=== PATIENT | male | born 1945 | race Caucasian/White ===

== ENCOUNTER 2017-09-26 19:13 | Inpatient (IN) | payer MEDICARE ==
[2017-09-26] MEDS ORDERED: ACETAMINOPHEN 325 MG TABLET PO ONE (19:36)
--- NOTE | 2017-09-26 19:37 | ERNOTE ---
Trauma/Assault HPI - General Stated Complaint: FALL Time Seen by Provider: 09/26/17 19:16 Source: patient Exam Limitations: no limitations - Immun/Allergies/Home Medications Immunizations: IMMUNIZATION HX Immunizations Up to Date Yes History of Influenza Vaccine No Allergies/Adverse Reactions: Allergies gun powder Allergy (Unknown, Uncoded 07/18/12 13:05) Home Medications: HOME MEDICATIONS Aspirin 81 mg PO DAILY 05/03/16 [Last Taken Unknown] Benazepril HCl [Lotensin] 40 mg PO DAILY 05/03/16 [Last Taken Unknown] Clonidine HCl [Catapres] 0.3 mg PO BID 05/03/16 [Last Taken Unknown] - History of Present Illness Narrative: Around 15:00 patient slipped and fell outside, lay there for about an hour as he couldn't get up by himself, was helped into the house but then fell again prior to coming here, denies loss of consciousness, has a fever on arrival, slight cough Location Occurred: Reports: home Pain Location: Reports: back - lower Method of Injury: Reports: fall Modifying Factors - (Improves): Reports: rest Modifying Factors - (Worsens): Reports: movement Loss of Consciousness: Reports: no loss of consciousness Associated Symptoms - Trauma: Denies: headache, vision changes, neck pain, abdominal pain, nausea Review of Systems - Review of Systems Constitutional: Present: fever, chills. Absent: recent illness EYE: Absent: vision changes ENT: Absent: nose congestion, sore throat Respiratory: Present: cough. Absent: shortness of breath Cardiology: Absent: chest pain Gastrointestinal/Abdominal: Absent: nausea, vomiting, abdominal pain Genitourinary: Present: no symptoms reported Musculoskeletal: Present: See HPI, back pain Skin: Absent: rash Neurological: Absent: headache, weakness, numbness - Patient's Past Medical History Patient History - Medical: No pertinent hx Patient History - Cardiac/Respiratory: Hypertension Patient History - Cancer: No Hx of Cancer Patient History - Surgical Procedures: Other Patient History - Other: None - Social History Living Situations: home Psych History: No pertinent hx Alcohol Use: none Drug Use: none - Immunizations Immunizations Up to Date: Yes History of Influenza Vaccine: No Detailed Trauma Exam Best Eye Response (Robbie): (4) open spontaneously Best Verbal Response (Robbie): (5) oriented Best Motor Response (Robbie): (6) obeys commands Robbie Total: 15 General Appearance: Present: alert, anxious Head Injury: Present: normal inspection, no tenderness on palpate Neurological Exam: Present: alert, oriented x 4, no motor/sensory deficits, normal mood/affect, other - 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 inspection Chest/Respiratory Exam: Present: nml inspection, chest non-tender, breath sounds nml Cardiovascular Exam: Present: no murmur, tachycardia Back Exam: Present: normal inspection, no CVA tenderness, vertebral tenderness - lumbar Abdominal Exam: Present: soft, non-tender, no distention Skin Exam: Present: normal color, warm/dry RU Extremity: Present: normal inspection, normal range of motion, other - slightly tender over anterior shoulder ELLE Extremity: Present: normal inspection, normal range of motion, non-tender RL Extremity: Present: normal range of motion, non-tender, normal except - - mild abrasion over patella. no swelling LL Extremity: Present: normal inspection, normal range of motion, non-tender - C-Spine cleared by: Neg history & exam - Long Board: Back visualized ED Progress - Results and Orders Patient's Lab Results:: I have reviewed the patient's lab results. - Vital Signs Patient's Vital Signs:: I have reviewed the patient's vital signs. Vital Signs: Vital Signs 09/26/17 19:15 Temperature 40.1 C H Pulse Rate 122 H Respiratory 35 H Rate Blood Pressure 144/78 O2 Sat by Pulse 96 Oximetry - EKG EKG: NSR - sinustachy, other - poor quality EKG read: Interp. by me - X-Ray X-Ray #1 X-Ray: chest - perihilar prominence, no definite infiltrate Interpretation: Reviewed by me - CT/Ultrasound CT/Ultrasound Narrative: CT head: no acute - Progress/Reassessment Progress Note-Subjective: 09/26/17 20:47 discussed with maria e Garcia to admit 09/26/17 20:53 pneumonia severity index score 144, class V Departure Clinical Impression: Sepsis Qualifiers: Sepsis type: sepsis due to unspecified organism Qualified Code(s): A41.9 - Sepsis, unspecified organism Pneumonia Qualifiers: Pneumonia type: due to unspecified organism Laterality: unspecified laterality Lung location: unspecified part of lung Qualified Code(s): J18.9 - Pneumonia, unspecified organism Fall Qualifiers: Encounter type: initial encounter Qualified Code(s): W19.XXXA - Unspecified fall, initial encounter Lumbar contusion Qualifiers: Encounter type: initial encounter Qualified Code(s): S30.0XXA - Contusion of lower back and pelvis, initial encounter - Departure Disposition: [facility] Condition: Stable Critical Care Time - Critical Care Critical Time Spent:: No
[2017-09-26 19:39] LABS: Hematocrit 37.6 % (42.0-52.0); Hemoglobin 13.1 gm/dL (13.5-18.0); Mean Cell Volume 84.5 fl (78-100); Mean Corpuscular Hemoglobin 29.4 pg (27-31); Mean Corpuscular Hgb Conc 34.8 g/dl (32-36); Mean Platelet Volume 9.6 fl (6.0-9.5); Neutrophil # 15.9 K/mm3 (1.3-6.0); Neutrophil % 85.5 % (42-75.0); Platelet Count 234 K/mm3 (150-450); Red Blood Count 4.45 M/mm3 (4.7-6.0); White Blood Count 18.6 K/mm3 (4.0-10.5)
[2017-09-26 19:54] LABS: Albumin * 3.4 gm/dl (3.4-5.0); Anion Gap 14.6 mmol/L (6.8-13.8); BUN/Creatinine Ratio 14.8 (9.0-21.6); Bilirubin, Total 0.5 mg/dL (0.0-1.1); Ca. Corrected For Albumin 9.4 mg/dL (8.4-10.2); Calcium * 9.2 mg/dL (7.9-10.9); Carbon Dioxide 24.6 mmol/L (24-32.6); Potassium 4.2 mmol/L (3.4-4.6); Total Protein 7.8 gm/dL (6.2-8.2)
[2017-09-26] MEDS ORDERED: ACETAMINOPHEN 325 MG TABLET ONE (20:08)
[2017-09-26] MEDS: NORMAL SALINE 1,000 ML IV PRN (20:19)
[2017-09-26 20:30] LABS: Urine Bilirubin Negative (NEGATIVE); Urine Blood 250 /ul (NEGATIVE); Urine Ketone Negative (NEGATIVE); Urine Nitrite Negative (NEGATIVE); Urine Protein 30 mg/dL (NEGATIVE); Urine Specific Gravity 1.025 SP.GR. (1.005-1.030); Urine Urobilinogen Normal (NORMAL); Urine pH 5.5 pH (5.0-7.0)
[2017-09-26 20:45] LABS: Urine Appearance Clear; Urine Color Yellow
[2017-09-26 20:46] LABS: Urine Amorphous Sediment Moderate - 2+ (NONE-FEW); Urine Bacteria 1+; Urine RBC 0-5 /hpf (0-5); Urine WBC TRACE /hpf (0-5)
[2017-09-26] MEDS ORDERED: AZITHROMYCIN 250 MG TABLET PO STA (20:57)
[2017-09-26] MEDS ORDERED: AZITHROMYCIN 250 MG TABLET ONE (21:10)
[2017-09-26] MEDS ORDERED: ALBUTEROL SULFATE 2.5 MG/0.5 ML VIAL.NEB IH PRN (22:47)
[2017-09-27] MEDS: NORMAL SALINE 1,000 ML IV PRN ×3 (00:09→07:18)
[2017-09-27] MEDS ORDERED: ACETAMINOPHEN 325 MG TABLET PO STA (00:44)
[2017-09-27] MEDS: ACETAMINOPHEN 325 MG TABLET PO PRN ×3 (07:58→20:54)
[2017-09-27 08:59] LABS: Hematocrit 34.9 % (42.0-52.0); Mean Cell Volume 84.9 fl (78-100); Mean Corpuscular Hemoglobin 29.2 pg (27-31); Mean Corpuscular Hgb Conc 34.4 g/dl (32-36); Mean Platelet Volume 9.4 fl (6.0-9.5); Neutrophil # 16.6 K/mm3 (1.3-6.0); Neutrophil % 88.1 % (42-75.0); Platelet Count 181 K/mm3 (150-450); Red Blood Count 4.11 M/mm3 (4.7-6.0); Red Cell Distribution Width 14.6 % (11.5-14.0); White Blood Count 18.8 K/mm3 (4.0-10.5)
[2017-09-27 09:23] LABS: Albumin * 2.8 gm/dl (3.4-5.0); Anion Gap 14.8 mmol/L (6.8-13.8); BUN/Creatinine Ratio 13.7 (9.0-21.6); Bilirubin, Total 0.5 mg/dL (0.0-1.1); Ca. Corrected For Albumin 8.9 mg/dL (8.4-10.2); Calcium * 8.3 mg/dL (7.9-10.9); Carbon Dioxide 20.9 mmol/L (24-32.6); Potassium 3.7 mmol/L (3.4-4.6); Total Protein 6.8 gm/dL (6.2-8.2)
[2017-09-27 16:43] LABS: Urine Bilirubin Negative (NEGATIVE); Urine Blood 250 /ul (NEGATIVE); Urine Ketone Negative (NEGATIVE); Urine Nitrite Negative (NEGATIVE); Urine Protein 30 mg/dL (NEGATIVE); Urine Specific Gravity 1.025 SP.GR. (1.005-1.030); Urine Urobilinogen Normal (NORMAL)
[2017-09-27 16:52] LABS: Urine Appearance Clear; Urine Color Yellow
[2017-09-27 16:53] LABS: Urine Bacteria 1+; Urine WBC None Seen /hpf (0-5)
[2017-09-27] MEDS ORDERED: cefTRIAXone SODIUM 1,000 MG in DEXTROSE 5 % IN WATER 50 ML IV SCH ×2 (20:59)
[2017-09-27] MEDS: AZITHROMYCIN 250 MG TABLET PO SCH (22:37)
[2017-09-28] MEDS: AZITHROMYCIN 250 MG TABLET PO SCH (09:14)
[2017-09-28] MEDS: ACETAMINOPHEN 325 MG TABLET PO PRN ×2 (09:15→19:36)
[2017-09-28 09:25] LABS: Anion Gap 15.4 mmol/L (6.8-13.8); BUN/Creatinine Ratio 12.3 (9.0-21.6); Bilirubin, Total 0.6 mg/dL (0.0-1.1); Ca. Corrected For Albumin 9.6 mg/dL (8.4-10.2); Calcium * 9.1 mg/dL (7.9-10.9); Carbon Dioxide 20.5 mmol/L (24-32.6); Potassium 3.9 mmol/L (3.4-4.6); Total Protein 7.7 gm/dL (6.2-8.2)
[2017-09-28 09:31] LABS: Hematocrit 37.7 % (42.0-52.0); Hemoglobin 12.7 gm/dL (13.5-18.0); Mean Cell Volume 84.7 fl (78-100); Mean Corpuscular Hemoglobin 28.5 pg (27-31); Mean Corpuscular Hgb Conc 33.7 g/dl (32-36); Mean Platelet Volume 9.7 fl (6.0-9.5); Platelet Count 204 K/mm3 (150-450); Red Blood Count 4.45 M/mm3 (4.7-6.0); Red Cell Distribution Width 14.4 % (11.5-14.0); White Blood Count 22.7 K/mm3 (4.0-10.5)
[2017-09-28 09:32] LABS: Total Cells Counted 100
[2017-09-28 09:54] LABS: Band 3 % (0-2.0); Lymphocyte 3 % (20-51); Monocyte 2 % (0-9); Neutrophil 92 % (42-75); Neutrophil # 20.9 K/mm3 (1.3-6.0)
[2017-09-28 09:55] LABS: Platelet Estimate Normal (NORMAL); Toxic Granulation 1+
[2017-09-28] MEDS ORDERED: LEVOFLOXACIN 750 MG TABLET PO SCH (11:00)
[2017-09-28] MEDS ORDERED: FUROSEMIDE 10 MG/ML VIAL IV ONE (11:36)
[2017-09-28] MEDS: ENALAPRIL MALEATE 20 MG TABLET PO SCH (11:54)
[2017-09-28] MEDS: ASPIRIN 81 MG TAB.CHEW PO SCH (11:54)
[2017-09-28] MEDS: PIPERACILLIN SODIUM/TAZOBACTAM 3.375 GM in DEXTROSE 5 % IN WATER 100 ML IV SCH ×4 (16:51→23:45)
[2017-09-28] MEDS: VANCOMYCIN HCL 2 GM in DEXTROSE 5 % IN WATER 500 ML IV SCH ×2 (17:03)
[2017-09-28] MEDS ORDERED: MAG HYDROX/ALUMINUM HYD/SIMETH 148 ML BTL PO ONE ×2 (21:30→23:15)
[2017-09-28] MEDS: GABAPENTIN 300 MG CAPSULE PO SCH (21:36)
[2017-09-28] MEDS: SACCHAROMYCES BOULARDII 250 MG CAPSULE PO SCH (21:36)
--- NOTE | 2017-09-28 22:34 | HP ---
Chief Complaint - Chief Complaint Date of Service: 09/27/17 Time of Service: 08:00 Chief Complaint: Weakness and fever, fall History of Present Illness: Jonah is a 72 yo male that presented to the [facility] ER after being found in the snow. He had fallen and had difficulty getting up. No known loss of consciousness. He reports he has frequent falls from weakness. He scratched his knees and back and may have hit his head. He was evaluated in the ER and found to have a fever and weakness. Head CT was negative. Chest xray negative for pneumonia. Urine negative for infection. Jonah has been treated by Dr. Arriaga for a right great toe wound. He denies pain, drainage, or other change to toe or leg. - Patient's Past Medical History Patient History - Medical: Renal Failure Patient History - Cardiac/Respiratory: Hypertension, Hyperlipidemia Patient History - Cancer: No Hx of Cancer Patient History - Other: None - Family History dad Family History - Medical: Diabetes Type 2 Family History - Cardiac/Respiratory: No pertinent hx Family History - Cancer: No pertinent family hx mom Family History - Medical: No pertinent hx Family History - Cardiac/Respiratory: Other Family History - Cancer: No pertinent family hx - Social History Living Situations: home Abuse History: No History of abuse Psych History: No pertinent hx Smoking Status: Never smoker Have you smoked in the past 12 months: No Do you dip or chew tobacco: No Alcohol Use: none Drug Use: none - Immunizations Immunizations Up to Date: Yes Hx Pneumococcal Vaccination: No History of Influenza Vaccine: No Review Of Systems (GEN) - Review of Systems Generalized/Overall Review: Present: Weakness, Chills, Fever, Malaise, Diaphoresis, Fatigue EENTM: Present: No Symptoms Reported Respiratory: Present: Cough. Absent: Shortness of Breath Cardiac: Present: Edema. Absent: Chest Pain, Palpitations, Syncope Abdominal: Absent: Nausea, Vomiting, Abdominal Pain Genitourinary: Present: No Symptoms Reported Musculoskeletal: Present: Back Pain Neurological: Present: No Symptoms Reported Skin: Present: No Symptoms Reported Immunizations: IMMUNIZATION HX Immunizations Up to Date Yes History of Influenza Vaccine No Allergies/Adverse Reactions: Allergies Allergy/AdvReac Type Severity Reaction Status Date / Time gun powder Allergy Unknown Uncoded 09/26/17 23:28 Home Medications: HOME MEDICATIONS Aspirin 81 mg PO DAILY 09/14/16 [Last Taken Unknown] Benazepril HCl [Lotensin] 40 mg PO DAILY 05/03/16 [Last Taken Unknown] Clonidine HCl [Catapres] 0.3 mg PO BID 05/03/16 [Last Taken Unknown] Gabapentin 300 mg PO HS 09/26/17 [Last Taken Unknown] Exam - Exam Vital Signs: Vital Signs - Last Taken Constitutional: Present: Alert, Oriented x3, Cooperative ENT Exam: Present: hearing grossly normal Eye Exam: bilateral eye: normal inspection Respiratory: Present: lungs clear, normal breath sounds, no respiratory distress Cardiovascular/Chest: Present: regular rate, rhythm, no murmur Abdomen: Present: Normal bowel sounds, soft, nontender, nondistended Extremity: Present: inflammation - Right ankle to knee, 1+ pitting edema, mild erythema, not hot or tender to palpation, lower extremity edema Neurologic: Present: alert, normal mood/affect, oriented x 3, sensory deficit - bilateral feet Appearance: Present: appropriate appearance, appropriate insight Eye contact: Present: cooperative, good eye contact, normal speech Diagnostic Studies: Abnormal Lab Results 09/28/17 09/28/17 Range/Units 09:07 09:07 WBC 22.7 H D (4.0-10.5) K/mm3 RBC 4.45 L (4.7-6.0) M/mm3 Hgb 12.7 L (13.5-18.0) gm/dL Hct 37.7 L (42.0-52.0) % RDW 14.4 H (11.5-14.0) % MPV 9.7 H (6.0-9.5) fl Neutrophils % (Manual) 92 H (42-75) % Band Neuts % (Manual) 3 H (0-2.0) % Lymphocytes % (Manual) 3 L (20-51) % Neutrophils # (Manual) 20.9 H (1.3-6.0) K/mm3 Lymphocytes # (Manual) 0.7 L (1.5-3.5) k/mm3 Carbon Dioxide 20.5 L (24-32.6) mmol/L Anion Gap 15.4 H (6.8-13.8) mmol/L BUN 26 H (6-23) mg/dL Creatinine 2.11 H (0.4-1.4) mg/dL Est GFR (Non-Af Amer) 33 L (60-130) mL/min Random Glucose 163 H (70-110) mg/dL AST 189 H (0-48) U/L Albumin 3.0 L (3.4-5.0) gm/dl Microbiology 09/26/17 21:02 Blood Culture - Preliminary Blood NO GROWTH AFTER 48 HOURS 09/27/17 09:40 - Final Nares MRSA Negative 09/26/17 23:26 - Final Nares MRSA Negative Laboratory Results WBC 22.7 K/mm3 (4.0-10.5) H D 09/28/17 09:07 RBC 4.45 M/mm3 (4.7-6.0) L 09/28/17 09:07 Hgb 12.7 gm/dL (13.5-18.0) L 09/28/17 09:07 Hct 37.7 % (42.0-52.0) L 09/28/17 09:07 MCV 84.7 fl (78-100) 09/28/17 09:07 MCH 28.5 pg (27-31) 09/28/17 09:07 MCHC 33.7 g/dl (32-36) 09/28/17 09:07 RDW 14.4 % (11.5-14.0) H 09/28/17 09:07 Plt Count 204 K/mm3 (150-450) 09/28/17 09:07 MPV 9.7 fl (6.0-9.5) H 09/28/17 09:07 Immature Gran % (Auto) 0.90 % (0.001-0.429) H 09/27/17 08:55 Immature Gran # (Auto) 0.17 K/mm3 (0.000-0.0310) H 09/27/17 08:55 Neutrophils % 88.1 % (42-75.0) H 09/27/17 08:55 Neutrophils % (Manual) 92 % (42-75) H 09/28/17 09:07 Band Neuts % (Manual) 3 % (0-2.0) H 09/28/17 09:07 Lymphocytes % 6.6 % (20-51) L 09/27/17 08:55 Lymphocytes % (Manual) 3 % (20-51) L 09/28/17 09:07 Monocytes % 3.6 % (0.0-9) 09/27/17 08:55 Monocytes % (Manual) 2 % (0-9) 09/28/17 09:07 Eosinophils % 0.0 % (0.0-3.0) 09/27/17 08:55 Basophils % 0.8 % (0.0-1.0) 09/27/17 08:55 Nucleated RBC % 0.0 k/mm3 (0-1) 09/27/17 08:55 Neutrophils # 16.6 K/mm3 (1.3-6.0) H 09/27/17 08:55 Neutrophils # (Manual) 20.9 K/mm3 (1.3-6.0) H 09/28/17 09:07 Lymphocytes # 1.2 k/mm3 (1.5-3.5) L 09/27/17 08:55 Lymphocytes # (Manual) 0.7 k/mm3 (1.5-3.5) L 09/28/17 09:07 Monocytes # 0.7 k/mm3 (0.0-1.0) 09/27/17 08:55 Monocytes # (Manual) 0.5 k/mm3 (0.0-1.0) 09/28/17 09:07 Eosinophils # 0.0 k/mm3 (0.0-0.7) 09/27/17 08:55 Basophils # (Manual) 0.0 k/mm3 (0.0-0.1) 09/28/17 09:07 Absolute Basophils 0.2 k/mm3 (0.0-0.1) H 09/27/17 08:55 Toxic Granulation 1+ 09/28/17 09:07 Toxic Vacuolation 1+ 09/28/17 09:07 Platelet Estimate Normal (NORMAL) 09/28/17 09:07 Sodium 135 mmol/L (132-142) 09/28/17 09:07 Plasma Sodium 136 mmol/L (130-142) 09/28/17 09:07 Potassium 3.9 mmol/L (3.4-4.6) 09/28/17 09:07 Chloride 103 mmol/L (97-106) 09/28/17 09:07 Carbon Dioxide 20.5 mmol/L (24-32.6) L 09/28/17 09:07 Anion Gap 15.4 mmol/L (6.8-13.8) H 09/28/17 09:07 BUN 26 mg/dL (6-23) H 09/28/17 09:07 Creatinine 2.11 mg/dL (0.4-1.4) H 09/28/17 09:07 Est GFR (Non-Af Amer) 33 mL/min (60-130) L 09/28/17 09:07 BUN/Creatinine Ratio 12.3 (9.0-21.6) 09/28/17 09:07 Random Glucose 163 mg/dL (70-110) H 09/28/17 09:07 Lactic Acid, Venous 1.5 mmol/L (0.4-1.9) 09/26/17 23:04 Calcium 9.1 mg/dL (7.9-10.9) 09/28/17 09:07 Calcium Adj for Albumin 9.6 mg/dL (8.4-10.2) 09/28/17 09:07 Total Bilirubin 0.6 mg/dL (0.0-1.1) 09/28/17 09:07 AST 189 U/L (0-48) H 09/28/17 09:07 ALT 62 U/L (19-67) 09/28/17 09:07 Alkaline Phosphatase 91 U/L (50-170) 09/28/17 09:07 Total Protein 7.7 gm/dL (6.2-8.2) 09/28/17 09:07 Albumin 3.0 gm/dl (3.4-5.0) L 09/28/17 09:07 Procalcitonin 15.81 ng/mL (0.05-0.50) H 09/26/17 19:38 Urine Color Yellow 09/27/17 16:37 Urine Appearance Clear 09/27/17 16:37 Urine pH 6.0 pH (5.0-7.0) 09/27/17 16:37 Ur Specific [place] 1.025 SP.GR. (1.005-1.030) 09/27/17 16:37 Urine Protein 30 mg/dL (NEGATIVE) H 09/27/17 16:37 Urine Glucose (UA) 100 mg/dL (NEGATIVE) H 09/27/17 16:37 Urine Ketones Negative mg/dL (NEGATIVE) 09/27/17 16:37 Urine Blood 250 /ul (NEGATIVE) H 09/27/17 16:37 Urine Nitrate Negative (NEGATIVE) 09/27/17 16:37 Urine Bilirubin Negative mg/dl (NEGATIVE) 09/27/17 16:37 Prot Sulfosalicylic Acd Negative mg/dL (0) 09/27/17 16:37 Urine Urobilinogen Normal EU/dl (NORMAL) 09/27/17 16:37 Ur Leukocyte Esterase Negative /ul (NEGATIVE) 09/27/17 16:37 Urine RBC 5-10 /hpf (0-5) H 09/27/17 16:37 Urine WBC None seen /hpf (0-5) 09/27/17 16:37 Ur Epithelial Cells None seen /hpf (0-5) 09/27/17 16:37 Amorphous Sediment Moderate - 2+ (NONE-FEW) H 09/26/17 19:45 Urine Bacteria 1+ (NONE) H 09/27/17 16:37 Urine Culture Comments No culture indicated 09/27/17 16:37 Influenza Type A Ag Negative (NEGATIVE) 09/26/17 19:25 Influenza Type B Ag Negative (NEGATIVE) 09/26/17 19:25 Assessment/Plan - Narrative Narrative: Jonah is a 72 yo male with: 1) Suspected sepsis based on leukocytosis, fever, tachycardia, and tachypnea. Also with elevated lactic acid and procalcitonin. Will obtain blood cultures, urine culture. Unknown infectious source. Patient was found in the snow, possible pneumonia with cough and fever, but chest xray did not show a pneumonia , may be too early. Urine was negative for infection. Right great toe looks chronic. Right leg erythema seems secondary to edema and not significantly red. Most likely infectious source at this time is pneumonia. Will treat with azithromycin and rocephin. I will talk with Dr. Arriaga about the usual appearance of his foot. Will repeat chest xray to see if any obvious pneumonia develops. Expect >1 midnight to evaluate source of infection and treat. - Assessment/Plan (1) Sepsis Problem: Suspected Qualifiers: Sepsis type: sepsis due to unspecified organism Qualified Code(s): A41.9 - Sepsis, unspecified organism (2) Leukocytosis Problem: Acute (3) Fever Problem: Acute (4) Fall Problem: Acute Qualifiers: Encounter type: initial encounter Qualified Code(s): W19.XXXA - Unspecified fall, initial encounter
[2017-09-28] MEDS ORDERED: MAG HYDROX/ALUMINUM HYD/SIMETH 30 ML UDC ONE (23:07)
--- NOTE | 2017-09-28 23:53 | PN ---
Subjective - Date and Time Seen Date: 09/28/17 Time: 15:00 Subjective Narrative: Jonah reports nausea today. Denies pain to right leg or foot. Continues to have a mild cough. Discussed with Dr. Arriaga who looked at his foot and felt it was unchanged from usual. No surrounding erythema. Objective - Vitals Vitals: Last Vital Signs Temp 36.4 C L 09/28/17 23:12 Pulse 86 09/28/17 23:12 Resp 18 09/28/17 23:12 BP 162/95 09/28/17 23:12 Pulse Ox 99 09/28/17 23:12 - Abnormal Lab Findings Abnormal Lab Findings: Abnormal Lab Results 09/28/17 09/28/17 Range/Units 09:07 09:07 WBC 22.7 H D (4.0-10.5) K/mm3 RBC 4.45 L (4.7-6.0) M/mm3 Hgb 12.7 L (13.5-18.0) gm/dL Hct 37.7 L (42.0-52.0) % RDW 14.4 H (11.5-14.0) % MPV 9.7 H (6.0-9.5) fl Neutrophils % (Manual) 92 H (42-75) % Band Neuts % (Manual) 3 H (0-2.0) % Lymphocytes % (Manual) 3 L (20-51) % Neutrophils # (Manual) 20.9 H (1.3-6.0) K/mm3 Lymphocytes # (Manual) 0.7 L (1.5-3.5) k/mm3 Carbon Dioxide 20.5 L (24-32.6) mmol/L Anion Gap 15.4 H (6.8-13.8) mmol/L BUN 26 H (6-23) mg/dL Creatinine 2.11 H (0.4-1.4) mg/dL Est GFR (Non-Af Amer) 33 L (60-130) mL/min Random Glucose 163 H (70-110) mg/dL AST 189 H (0-48) U/L Albumin 3.0 L (3.4-5.0) gm/dl - Exam Constitutional: Present: Alert, Oriented x3, Cooperative ENT Exam: Present: hearing grossly normal Respiratory: Present: lungs clear, normal breath sounds Cardiovascular/Chest: Present: regular rate, rhythm, no murmur Abdomen: Present: Normal bowel sounds, soft, nontender, nondistended Extremity: Present: inflammation - Right ankle to knee with bright red erythema , brighter than yesterday. No drainage. No redness of foot. Right great toe with dry, chronic appearing callous, lower extremity edema - 2+ Neurologic: Present: alert, normal mood/affect, oriented x 3 Appearance: Present: appropriate appearance, appropriate insight Assessment/Plan Plan Narrative: Jonah is a 72 yo male with: 1) Suspected sepsis based on leukocytosis, tachycardia, tachypnea, and fever. Right lower leg cellulitis present. He has a history of venous stasis dermatitis , unclear if this is usual or worse. Today the right leg does appear more erythematous than yesterday, and this is the likely source of infection. Xray of right foot did not show any evidence of osteomyelitis but to get a better and more definite answer attempted to get right foot MRI but patient was unable to hold his foot still due to restlessness. WBC even higher today. Discontinued rocephin/azithromycin and started zosyn/vancomycin to broad cover cellulitis with possible sepsis and possible osteomyelitis. Will follow CBC. - Problems/Diagnosis (1) Cellulitis of right leg without foot Problem: Acute (2) Sepsis Problem: Suspected Qualifiers: Sepsis type: sepsis due to unspecified organism Qualified Code(s): A41.9 - Sepsis, unspecified organism (3) Leukocytosis Problem: Acute (4) Fever Problem: Acute (5) Fall Problem: Acute Qualifiers: Encounter type: initial encounter Qualified Code(s): W19.XXXA - Unspecified fall, initial encounter
[2017-09-29 05:46] LABS: Hematocrit 38.5 % (42.0-52.0); Hemoglobin 13.1 gm/dL (13.5-18.0); Mean Cell Volume 84.4 fl (78-100); Mean Corpuscular Hemoglobin 28.7 pg (27-31); Mean Platelet Volume 9.7 fl (6.0-9.5); Platelet Count 228 K/mm3 (150-450); Red Blood Count 4.56 M/mm3 (4.7-6.0); Red Cell Distribution Width 14.2 % (11.5-14.0); White Blood Count 18.2 K/mm3 (4.0-10.5)
[2017-09-29 05:50] LABS: Total Cells Counted 100
[2017-09-29 06:11] LABS: Albumin * 2.9 gm/dl (3.4-5.0); Anion Gap 14.6 mmol/L (6.8-13.8); BUN/Creatinine Ratio 11.7 (9.0-21.6); Bilirubin, Total 0.7 mg/dL (0.0-1.1); Ca. Corrected For Albumin 9.6 mg/dL (8.4-10.2); Carbon Dioxide 23.1 mmol/L (24-32.6); Eosinophil 2 % (0-3); Lymphocyte 12 % (20-51); Monocyte 8 % (0-9); Neutrophil 78 % (42-75); Neutrophil # 14.2 K/mm3 (1.3-6.0); Potassium 3.7 mmol/L (3.4-4.6); Total Protein 8.1 gm/dL (6.2-8.2)
[2017-09-29 06:17] LABS: Platelet Estimate Normal (NORMAL); RBC Morphology Normal (NORMAL)
[2017-09-29] MEDS: PIPERACILLIN SODIUM/TAZOBACTAM 3.375 GM in DEXTROSE 5 % IN WATER 100 ML IV SCH ×6 (06:57→22:31)
--- NOTE | 2017-09-29 07:40 | PN ---
Subjective - Date and Time Seen Date: 09/29/17 Time: 07:27 Subjective Narrative: Reports dry heaving before each meal which is new to him. He does report some issues with urination recently and some recent hematuria and LBP. States no more hematuria, but does have lower back pain. No other complaints this am. Objective - Review of Systems Generalized/Overall Review: Reports: Weakness, Fever, Malaise. Denies: Chills EENTM: Reports: No Symptoms Reported Respiratory: Reports: No Symptoms Reported Cardiac: Reports: No Symptoms Reported Abdominal: Reports: Nausea, Vomiting. Denies: Hematemesis, Abdominal Pain, Constipation, Diarrhea Genitourinary Symptoms: Reports: Hematuria. Denies: Urgency, Frequency, Hesitancy, Dysuria Musculoskeletal Complaints: Reports: Back Pain Neurological: Reports: No Symptoms Reported Skin: Reports: Change in Color Endocrine: Reports: No Symptoms Reported - Vitals Vitals: Last Vital Signs Temp 36.6 C 09/29/17 06:41 Pulse 88 09/29/17 06:41 Resp 20 09/29/17 06:41 BP 179/99 09/29/17 06:41 Pulse Ox 97 09/29/17 03:03 - Abnormal Lab Findings Abnormal Lab Findings: Abnormal Lab Results 09/28/17 09/28/17 09/29/17 Range/Units 09:07 09:07 05:30 WBC 22.7 H D 18.2 H (4.0-10.5) K/mm3 RBC 4.45 L 4.56 L (4.7-6.0) M/mm3 Hgb 12.7 L 13.1 L (13.5-18.0) gm/dL Hct 37.7 L 38.5 L (42.0-52.0) % RDW 14.4 H 14.2 H (11.5-14.0) % MPV 9.7 H 9.7 H (6.0-9.5) fl Neutrophils % (Manual) 92 H 78 H (42-75) % Band Neuts % (Manual) 3 H (0-2.0) % Lymphocytes % (Manual) 3 L 12 L (20-51) % Neutrophils # (Manual) 20.9 H 14.2 H (1.3-6.0) K/mm3 Lymphocytes # (Manual) 0.7 L (1.5-3.5) k/mm3 Monocytes # (Manual) 1.5 H (0.0-1.0) k/mm3 ESR (0-10) mm/hr Carbon Dioxide 20.5 L (24-32.6) mmol/L Anion Gap 15.4 H (6.8-13.8) mmol/L BUN 26 H (6-23) mg/dL Creatinine 2.11 H (0.4-1.4) mg/dL Est GFR (Non-Af Amer) 33 L (60-130) mL/min Random Glucose 163 H (70-110) mg/dL AST 189 H (0-48) U/L C-Reactive Prot, Quant (0.0-0.9) mg/dL Albumin 3.0 L (3.4-5.0) gm/dl 09/29/17 09/29/17 Range/Units 05:30 05:30 WBC (4.0-10.5) K/mm3 RBC (4.7-6.0) M/mm3 Hgb (13.5-18.0) gm/dL Hct (42.0-52.0) % RDW (11.5-14.0) % MPV (6.0-9.5) fl Neutrophils % (Manual) (42-75) % Band Neuts % (Manual) (0-2.0) % Lymphocytes % (Manual) (20-51) % Neutrophils # (Manual) (1.3-6.0) K/mm3 Lymphocytes # (Manual) (1.5-3.5) k/mm3 Monocytes # (Manual) (0.0-1.0) k/mm3 ESR 102 H (0-10) mm/hr Carbon Dioxide 23.1 L (24-32.6) mmol/L Anion Gap 14.6 H (6.8-13.8) mmol/L BUN 25 H (6-23) mg/dL Creatinine 2.14 H (0.4-1.4) mg/dL Est GFR (Non-Af Amer) 33 L (60-130) mL/min Random Glucose 124 H (70-110) mg/dL AST 122 H (0-48) U/L C-Reactive Prot, Quant 19.0 H (0.0-0.9) mg/dL Albumin 2.9 L (3.4-5.0) gm/dl - Exam Constitutional: Present: Alert, Oriented x3, Cooperative, Mild distress, Moderate distress - vomiting - more dry heaving at time I saw him. still wanting to eat breakfast., Obese ENT Exam: Present: hard of hearing Neck: Present: supple Respiratory: Present: lungs clear, normal breath sounds, no respiratory distress , no accessory muscle use Cardiovascular/Chest: Present: regular rate, rhythm, no murmur Abdomen: Present: Normal bowel sounds, soft, nontender, no rebound tenderness, no hepatospenomegaly, obese Extremity: Present: lower extremity edema, leg pain, other - significant redness of the right lower leg, warm to touch but only slightly TTP. no open sores. Skin Exam: Present: warm/dry Neurologic: Present: normal mood/affect, oriented x 3 Appearance: Present: appropriate appearance, appropriate insight Eye contact: Present: cooperative, good eye contact, normal speech Thoughts: Present: normal thought pattern, no apparent hallucination Assessment/Plan - Problems/Diagnosis (1) Vomiting Problem: Acute Qualifiers: Vomiting type: unspecified Vomiting Intractability: non-intractable Nausea presence: with nausea Qualified Code(s): R11.2 - Nausea with vomiting, unspecified Narrative: unsure etiology - could be related to infection. will do reglan AC as it is reported to occur before each meal. Add zofran prn if reglan not effective. (2) Cellulitis of right leg without foot Problem: Acute Narrative: only source that can be found at the moment and leg is warm and quite red. change of abx is improving the labs, but will see how the leg does over time. (3) Fever Problem: Acute Qualifiers: Fever type: due to other condition Qualified Code(s): R50.81 - Fever presenting with conditions classified elsewhere Narrative: from infection - source presumed to be cellulitis. (4) Leukocytosis Problem: Acute Qualifiers: Leukocytosis type: bandemia Qualified Code(s): D72.825 - Bandemia Narrative: improved slightly this am after change of abx, but still 18k WBC and left shift , but bands resolved from yesterday. (5) Sepsis Problem: Suspected Qualifiers: Sepsis type: sepsis due to unspecified organism Qualified Code(s): A41.9 - Sepsis, unspecified organism Narrative: Sepsis supported by lactic acidosis, leukocytosis, fever of 40, tachycardia, though still unsure of the source. given his recent hematuria and back pain it is possible it could be a prostatitis. Given the redness of his leg, this appears to be the only other prominant source of infection. Abx change is improving things from a CBC standpoint so will continue unchanged. (6) Discharge planning issues Problem: Acute Narrative: anticipate him being here a minimum of 2 more days.
[2017-09-29] MEDS: METOCLOPRAMIDE HCL 5 MG TABLET PO SCH ×3 (08:11→17:22)
[2017-09-29] MEDS: ENALAPRIL MALEATE 20 MG TABLET PO SCH (08:12)
[2017-09-29] MEDS: ASPIRIN 81 MG TAB.CHEW PO SCH (08:12)
[2017-09-29] MEDS: SACCHAROMYCES BOULARDII 250 MG CAPSULE PO SCH ×2 (08:12→20:50)
[2017-09-29] MEDS: VANCOMYCIN HCL 2 GM in DEXTROSE 5 % IN WATER 500 ML IV SCH ×2 (15:24)
[2017-09-29] MEDS: GABAPENTIN 300 MG CAPSULE PO SCH (20:50)
[2017-09-30] MEDS ORDERED: amLODIPine BESYLATE 5 MG TABLET PO SCH (02:45)
[2017-09-30] MEDS: PIPERACILLIN SODIUM/TAZOBACTAM 3.375 GM in DEXTROSE 5 % IN WATER 100 ML IV SCH ×6 (07:19→23:49)
[2017-09-30] MEDS: METOCLOPRAMIDE HCL 5 MG TABLET PO SCH ×3 (07:19→17:28)
[2017-09-30] MEDS: ASPIRIN 81 MG TAB.CHEW PO SCH (08:56)
[2017-09-30] MEDS: ENALAPRIL MALEATE 20 MG TABLET PO SCH (08:56)
[2017-09-30] MEDS: amLODIPine BESYLATE 5 MG TABLET PO SCH (08:56)
[2017-09-30] MEDS: SACCHAROMYCES BOULARDII 250 MG CAPSULE PO SCH ×2 (08:56→22:41)
--- NOTE | 2017-09-30 12:19 | PN ---
Subjective - Date and Time Seen Date: 09/30/17 Time: 12:12 Subjective Narrative: States back pain is better today. States no leg pain. Nausea and vomiting AC is better. No other concerns expressed. Objective - Review of Systems Generalized/Overall Review: Reports: No Symptoms Reported EENTM: Reports: No Symptoms Reported Respiratory: Reports: No Symptoms Reported Cardiac: Reports: No Symptoms Reported Abdominal: Reports: No Symptoms Reported Genitourinary Symptoms: Reports: No Symptoms Reported Musculoskeletal Complaints: Reports: Back Pain Neurological: Reports: No Symptoms Reported Skin: Reports: Rash, Change in Color Endocrine: Reports: No Symptoms Reported - Vitals Vitals: Last Vital Signs Temp 36.7 C 09/30/17 10:26 Pulse 102 H 09/30/17 10:26 Resp 19 09/30/17 10:26 BP 111/78 09/30/17 10:26 Pulse Ox 100 09/30/17 10:26 - Exam Constitutional: Present: Alert, Oriented x3, Cooperative, Mild distress - slow speech/mentation, Obese ENT Exam: Present: hearing grossly normal Neck: Present: supple Respiratory: Present: chest non-tender, lungs clear, normal breath sounds, no accessory muscle use, respiratory distress Cardiovascular/Chest: Present: normal peripheral pulses, regular rate, rhythm Abdomen: Present: Normal bowel sounds, soft, nontender, nondistended, no rebound tenderness, no hepatospenomegaly Extremity: Present: no calf tenderness, other - edema and redness of the right LE, with erythema reduced from previous markings. mild warmth, NTTP. Neurologic: Present: normal mood/affect, oriented x 3 Appearance: Present: appropriate appearance, appropriate insight Eye contact: Present: cooperative, good eye contact, decreased rate of speech Thoughts: Present: normal thought pattern, no apparent hallucination Assessment/Plan - Problems/Diagnosis (1) Vomiting Problem: Acute Qualifiers: Vomiting type: unspecified Vomiting Intractability: non-intractable Nausea presence: with nausea Qualified Code(s): R11.2 - Nausea with vomiting, unspecified Narrative: better, cont. reglan ac (2) Cellulitis of right leg without foot Problem: Acute Narrative: improving. still only source of infection that is visible. (3) Fever Problem: Resolved Qualifiers: Fever type: due to other condition Qualified Code(s): R50.81 - Fever presenting with conditions classified elsewhere (4) Leukocytosis Problem: Acute Qualifiers: Leukocytosis type: bandemia Qualified Code(s): D72.825 - Bandemia Narrative: recheck in am, but clinically improving so would expect labs to improve. (5) Sepsis Problem: Suspected Qualifiers: Sepsis type: sepsis due to unspecified organism Qualified Code(s): A41.9 - Sepsis, unspecified organism Narrative: improving - cellulitis or possibly prostatitis given his back pain is better on the abx. (6) Discharge planning issues Problem: Acute Narrative: will need to be transitioned to PO meds or consider SNF for Abx tx. continue current tx for now. hopefully can d/c in a few days.
[2017-09-30] MEDS: VANCOMYCIN HCL 2 GM in DEXTROSE 5 % IN WATER 500 ML IV SCH ×2 (15:23)
[2017-09-30] MEDS: GABAPENTIN 300 MG CAPSULE PO SCH (22:41)
[2017-10-01 06:01] LABS: Hematocrit 41.1 % (42.0-52.0); Hemoglobin 13.9 gm/dL (13.5-18.0); Mean Cell Volume 84.7 fl (78-100); Mean Corpuscular Hemoglobin 28.7 pg (27-31); Mean Corpuscular Hgb Conc 33.8 g/dl (32-36); Mean Platelet Volume 9.3 fl (6.0-9.5); Neutrophil # 10.8 K/mm3 (1.3-6.0); Neutrophil % 73.9 % (42-75.0); Platelet Count 284 K/mm3 (150-450); Red Blood Count 4.85 M/mm3 (4.7-6.0); Red Cell Distribution Width 14.5 % (11.5-14.0); White Blood Count 14.7 K/mm3 (4.0-10.5)
[2017-10-01 06:28] LABS: Albumin * 2.7 gm/dl (3.4-5.0); Anion Gap 13.4 mmol/L (6.8-13.8); BUN/Creatinine Ratio 13.6 (9.0-21.6); Bilirubin, Total 0.8 mg/dL (0.0-1.1); Ca. Corrected For Albumin 9.6 mg/dL (8.4-10.2); Calcium * 8.9 mg/dL (7.9-10.9); Carbon Dioxide 24.5 mmol/L (24-32.6); Potassium 3.9 mmol/L (3.4-4.6); Total Protein 7.7 gm/dL (6.2-8.2)
[2017-10-01] MEDS: PIPERACILLIN SODIUM/TAZOBACTAM 3.375 GM in DEXTROSE 5 % IN WATER 100 ML IV SCH ×6 (07:02→22:31)
[2017-10-01] MEDS: METOCLOPRAMIDE HCL 5 MG TABLET PO SCH ×3 (07:02→16:17)
[2017-10-01] MEDS: SACCHAROMYCES BOULARDII 250 MG CAPSULE PO SCH ×2 (08:31→20:03)
[2017-10-01] MEDS: ASPIRIN 81 MG TAB.CHEW PO SCH (08:31)
[2017-10-01] MEDS: amLODIPine BESYLATE 5 MG TABLET PO SCH (08:31)
[2017-10-01] MEDS: ENALAPRIL MALEATE 20 MG TABLET PO SCH (08:32)
--- NOTE | 2017-10-01 12:36 | PN ---
Subjective - Date and Time Seen Date: 10/01/17 Time: 12:24 Subjective Narrative: Reports strength is improving. No pain in leg. No fever, chills, nausea, or vomiting. Objective - Vitals Vitals: Last Vital Signs Temp 37 C 10/01/17 11:00 Pulse 88 10/01/17 11:00 Resp 18 10/01/17 11:00 BP 154/80 10/01/17 11:00 Pulse Ox 98 10/01/17 11:00 - Abnormal Lab Findings Abnormal Lab Findings: Abnormal Lab Results 10/01/17 10/01/17 10/01/17 Range/Units 05:58 05:58 05:58 WBC 14.7 H (4.0-10.5) K/mm3 Hct 41.1 L (42.0-52.0) % RDW 14.5 H (11.5-14.0) % Immature Gran % (Auto) 2.90 H (0.001-0.429) % Immature Gran # (Auto) 0.43 H (0.000-0.0310) K/mm3 Lymphocytes % 13.2 L (20-51) % Neutrophils # 10.8 H (1.3-6.0) K/mm3 ESR 57 H (0-10) mm/hr BUN 29 H (6-23) mg/dL Creatinine 2.13 H (0.4-1.4) mg/dL Est GFR (Non-Af Amer) 33 L (60-130) mL/min Random Glucose 118 H (70-110) mg/dL AST 87 H (0-48) U/L ALT 75 H (19-67) U/L Albumin 2.7 L (3.4-5.0) gm/dl - Exam Constitutional: Present: Alert, Oriented x3, Cooperative ENT Exam: Present: hearing grossly normal Respiratory: Present: lungs clear, normal breath sounds Cardiovascular/Chest: Present: regular rate, rhythm, no murmur Extremity: Present: lower extremity edema - 1+ Skin Exam: Present: other - Erythema to right anterior lower leg Neurologic: Present: motor weakness Appearance: Present: appropriate appearance, appropriate insight Eye contact: Present: cooperative, good eye contact, normal speech Assessment/Plan - Problems/Diagnosis (1) Cellulitis of right leg without foot Problem: Acute Narrative: Cellulitis improving with zosyn/vancomycin. WBC improved to 14k. (2) Sepsis Problem: Ruled-out Qualifiers: Sepsis type: sepsis due to unspecified organism Qualified Code(s): A41.9 - Sepsis, unspecified organism (3) Fall Problem: Acute Qualifiers: Encounter type: initial encounter Qualified Code(s): W19.XXXA - Unspecified fall, initial encounter (4) Weakness of both lower extremities Problem: Acute Narrative: Patient with weakness to bilateral lower extremities with frequent falls. Needs strengthening. Continue therapy. Needs the use of a walker to help ambulate. Unsafe and unbalanced to use a cane. Able to maneuver a walker with improvement in ambulation.
[2017-10-01] MEDS ORDERED: VANCOMYCIN HCL LEVEL XX ONE (15:00)
[2017-10-01] MEDS: VANCOMYCIN HCL 2 GM in DEXTROSE 5 % IN WATER 500 ML IV SCH ×2 (16:21)
[2017-10-01] MEDS: GABAPENTIN 300 MG CAPSULE PO SCH (20:03)
[2017-10-01] MEDS: VANCOMYCIN HCL 1.75 GM in DEXTROSE 5 % IN WATER 500 ML IV SCH ×2 (20:05)
[2017-10-02] MEDS: PIPERACILLIN SODIUM/TAZOBACTAM 3.375 GM in DEXTROSE 5 % IN WATER 100 ML IV SCH ×4 (08:08→16:31)
[2017-10-02] MEDS: ACETAMINOPHEN 325 MG TABLET PO PRN (08:10)
[2017-10-02] MEDS: amLODIPine BESYLATE 5 MG TABLET PO SCH (08:10)
[2017-10-02] MEDS: SACCHAROMYCES BOULARDII 250 MG CAPSULE PO SCH ×2 (08:11→21:34)
[2017-10-02] MEDS: ENALAPRIL MALEATE 20 MG TABLET PO SCH (08:11)
[2017-10-02] MEDS: ASPIRIN 81 MG TAB.CHEW PO SCH (08:11)
[2017-10-02] MEDS: METOCLOPRAMIDE HCL 5 MG TABLET PO SCH ×3 (08:11→16:49)
[2017-10-02 08:28] LABS: Hematocrit 41.2 % (42.0-52.0); Mean Cell Volume 85.1 fl (78-100); Mean Corpuscular Hemoglobin 28.9 pg (27-31); Mean Platelet Volume 9.2 fl (6.0-9.5); Platelet Count 358 K/mm3 (150-450); Red Blood Count 4.84 M/mm3 (4.7-6.0); Red Cell Distribution Width 14.5 % (11.5-14.0); White Blood Count 16.8 K/mm3 (4.0-10.5)
[2017-10-02 08:29] LABS: Total Cells Counted 100
[2017-10-02 08:54] LABS: Band 1 % (0-2.0); Dohle Bodies Trace; Eosinophil 1 % (0-3); Lymphocyte 21 % (20-51); Monocyte 5 % (0-9); Neutrophil 72 % (42-75); Neutrophil # 12.1 K/mm3 (1.3-6.0); Platelet Estimate Normal (NORMAL); Toxic Granulation Trace
--- NOTE | 2017-10-02 16:38 | PN ---
Subjective - Date and Time Seen Date: 10/02/17 Time: 12:35 Subjective Narrative: He reports he was having pain earlier this morning and was unable to walk on left foot, but took some tylenol and pain went away. He has walked on it since without problem. He reports getting stronger. No fever, chills, n/v. Objective - Vitals Vitals: Last Vital Signs Temp 36.4 C L 10/02/17 15:07 Pulse 88 10/02/17 16:16 Resp 18 10/02/17 15:07 BP 133/82 10/02/17 15:07 Pulse Ox 100 10/02/17 15:07 - Abnormal Lab Findings Abnormal Lab Findings: Abnormal Lab Results 10/02/17 Range/Units 08:22 WBC 16.8 H (4.0-10.5) K/mm3 Hct 41.2 L (42.0-52.0) % RDW 14.5 H (11.5-14.0) % Neutrophils # (Manual) 12.1 H (1.3-6.0) K/mm3 - Exam Constitutional: Present: Alert, Oriented x3, Cooperative ENT Exam: Present: hearing grossly normal Respiratory: Present: lungs clear, normal breath sounds Cardiovascular/Chest: Present: regular rate, rhythm, no murmur Abdomen: Present: Normal bowel sounds, soft, nontender, nondistended Skin Exam: Present: normal color, other - No erythema. Bottom of feel are dry and cracked in locations Appearance: Present: appropriate appearance, appropriate insight Assessment/Plan Plan Narrative: Jonah is a 72 yo male with: 1) Right leg cellulitis - Cellulitis appears to be improving. No longer erythematous right leg. WBC up a little today at 16k. Continue zosyn and vancomycin. Since starting these medications he has improved significantly. Unsure as to the cause in the WBC bump today. Will recheck tomorrow. Plan to continue zosyn/vanco for 1 full week. 2) Dry feet - Will add moisturizing lotion 3) Foot pain - Will check uric acid with tomorrow's labs. - Problems/Diagnosis (1) Cellulitis of right leg without foot Problem: Acute (2) Sepsis Problem: Ruled-out Qualifiers: Sepsis type: sepsis due to unspecified organism Qualified Code(s): A41.9 - Sepsis, unspecified organism (3) Fall Problem: Acute Qualifiers: Encounter type: initial encounter Qualified Code(s): W19.XXXA - Unspecified fall, initial encounter (4) Weakness of both lower extremities Problem: Acute
[2017-10-02] MEDS: HYDROPHILIC OINTMENT 454 APPL JAR TP SCH ×2 (16:49→21:34)
[2017-10-02] MEDS: GABAPENTIN 300 MG CAPSULE PO SCH (21:34)
[2017-10-02] MEDS: VANCOMYCIN HCL 1.75 GM in DEXTROSE 5 % IN WATER 500 ML IV SCH ×2 (22:35)
[2017-10-03] MEDS: PIPERACILLIN SODIUM/TAZOBACTAM 3.375 GM in DEXTROSE 5 % IN WATER 100 ML IV SCH ×6 (01:46→15:29)
[2017-10-03 06:11] LABS: Hematocrit 37.4 % (42.0-52.0); Hemoglobin 12.6 gm/dL (13.5-18.0); Mean Cell Volume 85.2 fl (78-100); Mean Corpuscular Hemoglobin 28.7 pg (27-31); Mean Corpuscular Hgb Conc 33.7 g/dl (32-36); Mean Platelet Volume 9.2 fl (6.0-9.5); Platelet Count 322 K/mm3 (150-450); Red Blood Count 4.39 M/mm3 (4.7-6.0); Red Cell Distribution Width 14.4 % (11.5-14.0); White Blood Count 12.5 K/mm3 (4.0-10.5)
[2017-10-03 06:12] LABS: Total Cells Counted 100
[2017-10-03 06:25] LABS: Albumin * 2.5 gm/dl (3.4-5.0); Anion Gap 11.2 mmol/L (6.8-13.8); BUN/Creatinine Ratio 13.9 (9.0-21.6); Bilirubin, Total 0.5 mg/dL (0.0-1.1); Calcium * 9.1 mg/dL (7.9-10.9); Carbon Dioxide 24.9 mmol/L (24-32.6); Potassium 4.1 mmol/L (3.4-4.6); Total Protein 7.6 gm/dL (6.2-8.2); Uric Acid 5.4 mg/dL (2.6-7.2)
[2017-10-03 06:27] LABS: Basophil 2 % (0-1); Eosinophil 2 % (0-3); Hypersegmented Polys 3+; Lymphocyte 18 % (20-51); Monocyte 12 % (0-9); Neutrophil 66 % (42-75); Neutrophil # 8.3 K/mm3 (1.3-6.0); Platelet Estimate Increased (NORMAL); Rouleaux 2+
[2017-10-03] MEDS: METOCLOPRAMIDE HCL 5 MG TABLET PO SCH ×3 (08:05→21:40)
[2017-10-03] MEDS: HYDROPHILIC OINTMENT 454 APPL JAR TP SCH ×2 (08:42→21:42)
[2017-10-03] MEDS: SACCHAROMYCES BOULARDII 250 MG CAPSULE PO SCH ×2 (08:43→21:39)
[2017-10-03] MEDS: ASPIRIN 81 MG TAB.CHEW PO SCH (08:43)
[2017-10-03] MEDS: amLODIPine BESYLATE 5 MG TABLET PO SCH (08:43)
[2017-10-03] MEDS: ENALAPRIL MALEATE 20 MG TABLET PO SCH (08:44)
[2017-10-03] MEDS: VANCOMYCIN HCL 1.75 GM in DEXTROSE 5 % IN WATER 500 ML IV SCH ×2 (21:33)
[2017-10-03] MEDS: GABAPENTIN 300 MG CAPSULE PO SCH (21:39)
--- NOTE | 2017-10-03 23:02 | PN ---
Subjective - Date and Time Seen Date: 10/03/17 Time: 12:30 Subjective Narrative: No concerns today. Reports strength is improving. No fever, chills, nausea, or vomiting. Objective - Vitals Vitals: Last Vital Signs Temp 36.7 C 10/03/17 19:40 Pulse 93 10/03/17 19:40 Resp 18 10/03/17 19:40 BP 132/84 10/03/17 19:40 Pulse Ox 100 10/03/17 19:40 - Abnormal Lab Findings Abnormal Lab Findings: Abnormal Lab Results 10/03/17 10/03/17 Range/Units 05:35 05:35 WBC 12.5 H D (4.0-10.5) K/mm3 RBC 4.39 L (4.7-6.0) M/mm3 Hgb 12.6 L (13.5-18.0) gm/dL Hct 37.4 L (42.0-52.0) % RDW 14.4 H (11.5-14.0) % Lymphocytes % (Manual) 18 L (20-51) % Monocytes % (Manual) 12 H (0-9) % Basophils % (Manual) 2 H (0-1) % Neutrophils # (Manual) 8.3 H (1.3-6.0) K/mm3 Monocytes # (Manual) 1.5 H (0.0-1.0) k/mm3 Basophils # (Manual) 0.3 H (0.0-0.1) k/mm3 Platelet Estimate Increased H (NORMAL) BUN 35 H (6-23) mg/dL Creatinine 2.52 H (0.4-1.4) mg/dL Est GFR (Non-Af Amer) 27 L (60-130) mL/min Random Glucose 117 H (70-110) mg/dL AST 52 H (0-48) U/L Albumin 2.5 L (3.4-5.0) gm/dl - Exam Constitutional: Present: Alert, Oriented x3, Cooperative ENT Exam: Present: hearing grossly normal Respiratory: Present: lungs clear, normal breath sounds Cardiovascular/Chest: Present: regular rate, rhythm, no murmur Skin Exam: Present: other - Mild erythema to right anterior munoz Assessment/Plan Plan Narrative: Jonah is a 72 yo male with: 1) Cellulitis - Initially no improvement on rocephin, but after changing to vancomycin and zosyn WBC has improved and erythema has lessened. Plan to continue IV zosyn and vancomycin for 7 days due to no reliable oral alternative. Ok to discharge to home once completed 7 full days of zosyn/ vancomycin. 2) Weakness - Therapy consulted, strength gradually improving. Needs a walker at discharge. 3) Sepsis ruled out - Problems/Diagnosis (1) Cellulitis of right leg without foot Problem: Acute (2) Sepsis Problem: Ruled-out Qualifiers: Sepsis type: sepsis due to unspecified organism Qualified Code(s): A41.9 - Sepsis, unspecified organism (3) Fall Problem: Acute Qualifiers: Encounter type: initial encounter Qualified Code(s): W19.XXXA - Unspecified fall, initial encounter (4) Weakness of both lower extremities Problem: Acute
[2017-10-04] MEDS: PIPERACILLIN SODIUM/TAZOBACTAM 3.375 GM in DEXTROSE 5 % IN WATER 100 ML IV SCH ×8 (01:02→22:57)
[2017-10-04 06:37] LABS: Albumin * 2.6 gm/dl (3.4-5.0); Anion Gap 13.4 mmol/L (6.8-13.8); BUN/Creatinine Ratio 13.7 (9.0-21.6); Bilirubin, Total 0.4 mg/dL (0.0-1.1); Ca. Corrected For Albumin 10.3 mg/dL (8.4-10.2); Calcium * 9.5 mg/dL (7.9-10.9); Carbon Dioxide 25.2 mmol/L (24-32.6); Hematocrit 37.2 % (42.0-52.0); Hemoglobin 12.6 gm/dL (13.5-18.0); Mean Cell Volume 85.3 fl (78-100); Mean Corpuscular Hemoglobin 28.9 pg (27-31); Mean Corpuscular Hgb Conc 33.9 g/dl (32-36); Mean Platelet Volume 9.2 fl (6.0-9.5); Neutrophil # 8.5 K/mm3 (1.3-6.0); Neutrophil % 70.9 % (42-75.0); Platelet Count 342 K/mm3 (150-450); Potassium 4.6 mmol/L (3.4-4.6); Red Blood Count 4.36 M/mm3 (4.7-6.0); Red Cell Distribution Width 14.4 % (11.5-14.0)
[2017-10-04] MEDS: METOCLOPRAMIDE HCL 5 MG TABLET PO SCH ×3 (07:02→16:48)
[2017-10-04] MEDS: HYDROPHILIC OINTMENT 454 APPL JAR TP SCH ×2 (09:01→20:55)
[2017-10-04] MEDS: SACCHAROMYCES BOULARDII 250 MG CAPSULE PO SCH ×2 (09:02→20:55)
[2017-10-04] MEDS: ASPIRIN 81 MG TAB.CHEW PO SCH (09:02)
[2017-10-04] MEDS: amLODIPine BESYLATE 5 MG TABLET PO SCH (09:02)
[2017-10-04] MEDS: ENALAPRIL MALEATE 20 MG TABLET PO SCH (09:03)
--- NOTE | 2017-10-04 19:04 | PN ---
Subjective - Date and Time Seen Date: 10/04/17 Time: 09:45 Subjective Narrative: Patient seen and examined at bedside. No acute issues overnight. Patient states he is doing well and denies any new issues or concerns this am. Objective - Review of Systems Generalized/Overall Review: Reports: Weakness, Fatigue. Denies: Chills, Fever EENTM: Reports: No Symptoms Reported Respiratory: Reports: No Symptoms Reported Cardiac: Reports: Edema Abdominal: Reports: No Symptoms Reported Genitourinary Symptoms: Reports: No Symptoms Reported Musculoskeletal Complaints: Reports: Other - Leg pain, improving Neurological: Reports: No Symptoms Reported Skin: Reports: Other - Cellulitis to right LE - improving Endocrine: Reports: No Symptoms Reported Misc: All systems neg except as marked - Vitals Vitals: Last Vital Signs Temp 36.5 C 10/04/17 18:27 Pulse 91 10/04/17 18:27 Resp 18 10/04/17 18:27 BP 149/88 10/04/17 18:27 Pulse Ox 96 10/04/17 18:27 - Abnormal Lab Findings Abnormal Lab Findings: Abnormal Lab Results 10/04/17 10/04/17 Range/Units 06:17 06:17 WBC 12.0 H (4.0-10.5) K/mm3 RBC 4.36 L (4.7-6.0) M/mm3 Hgb 12.6 L (13.5-18.0) gm/dL Hct 37.2 L (42.0-52.0) % RDW 14.4 H (11.5-14.0) % Immature Gran % (Auto) 2.30 H (0.001-0.429) % Immature Gran # (Auto) 0.28 H (0.000-0.0310) K/mm3 Lymphocytes % 15.5 L (20-51) % Eosinophils % 3.8 H (0.0-3.0) % Neutrophils # 8.5 H (1.3-6.0) K/mm3 BUN 37 H (6-23) mg/dL Creatinine 2.70 H (0.4-1.4) mg/dL Est GFR (Non-Af Amer) 25 L (60-130) mL/min Random Glucose 111 H (70-110) mg/dL Calcium Adj for Albumin 10.3 H (8.4-10.2) mg/dL Albumin 2.6 L (3.4-5.0) gm/dl - Exam Constitutional: Present: Alert, Cooperative, No distress, Obese ENT Exam: Present: moist mucous membranes Respiratory: Present: lungs clear, normal breath sounds, no respiratory distress , no accessory muscle use Cardiovascular/Chest: Present: regular rate, rhythm, edema Abdomen: Present: soft, nontender, nondistended, obese Extremity: Present: lower extremity edema Skin Exam: Present: other - Erythema with healing wounds to right LE, cellulitis is improved since admission as noted by inital outlining Neurologic: Present: alert, normal mood/affect Appearance: Present: appropriate appearance, appropriate insight Eye contact: Present: cooperative, good eye contact Thoughts: Present: normal thought pattern, no apparent hallucination Assessment/Plan Plan Narrative: Patient doing well and improving as expected. Patient will complete his total 7 day course of IV antibiotics tomorrow, 10/05/17 so the plan is for discharge tomorrow. - Problems/Diagnosis (1) Cellulitis of right leg without foot Problem: Acute
[2017-10-04] MEDS ORDERED: VANCOMYCIN HCL LEVEL XX ONE (19:30)
[2017-10-04] MEDS: GABAPENTIN 300 MG CAPSULE PO SCH (20:55)
[2017-10-05] MEDS ORDERED: NORMAL SALINE IV SCH (06:00)
[2017-10-05] MEDS ORDERED: VANCOMYCIN HCL IV SCH (06:00)
[2017-10-05 06:12] LABS: Hematocrit 38.5 % (42.0-52.0); Hemoglobin 12.8 gm/dL (13.5-18.0); Mean Cell Volume 85.6 fl (78-100); Mean Corpuscular Hemoglobin 28.4 pg (27-31); Mean Corpuscular Hgb Conc 33.2 g/dl (32-36); Mean Platelet Volume 9.3 fl (6.0-9.5); Neutrophil # 10.4 K/mm3 (1.3-6.0); Neutrophil % 76.2 % (42-75.0); Platelet Count 383 K/mm3 (150-450); Red Cell Distribution Width 14.4 % (11.5-14.0); White Blood Count 13.6 K/mm3 (4.0-10.5)
[2017-10-05 06:21] LABS: Anion Gap 15.1 mmol/L (6.8-13.8); BUN/Creatinine Ratio 14.5 (9.0-21.6); Calcium * 9.5 mg/dL (7.9-10.9); Carbon Dioxide 24.6 mmol/L (24-32.6); Estimated Creat Clear 25.9; Potassium 4.7 mmol/L (3.4-4.6)
[2017-10-05] MEDS: METOCLOPRAMIDE HCL 5 MG TABLET PO SCH ×2 (07:09→10:23)
[2017-10-05] MEDS: PIPERACILLIN SODIUM/TAZOBACTAM 3.375 GM in DEXTROSE 5 % IN WATER 100 ML IV SCH ×2 (08:11)
[2017-10-05] MEDS: ENALAPRIL MALEATE 20 MG TABLET PO SCH (08:12)
[2017-10-05] MEDS: SACCHAROMYCES BOULARDII 250 MG CAPSULE PO SCH (08:12)
[2017-10-05] MEDS: ASPIRIN 81 MG TAB.CHEW PO SCH (08:12)
[2017-10-05] MEDS: amLODIPine BESYLATE 5 MG TABLET PO SCH (08:12)
[2017-10-05] MEDS: HYDROPHILIC OINTMENT 454 APPL JAR TP SCH (08:12)
[2017-10-05 11:26] VITALS: BP 143/77
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
== END 2017-10-05 14:06 | disposition home or self-care (01) | DRG 603 ==
LOC: ER 19:13 → MS 20:55
PROVIDERS: ADMIT Family Medicine; ATTEND Family Medicine
DX: L03.115 Cellulitis of right lower limb (principal); S30.0XXA Contusion of lower back and pelvis, initial encounter; W00.0XXA Fall on same level due to ice and snow, initial encounter; Z91.81 History of falling; Y92.009 Unspecified place in unspecified non-institutional (private) residence as the place of occurrence of the external cause; R53.1 Weakness; I10 Essential (primary) hypertension; E78.5 Hyperlipidemia, unspecified; D72.829 Elevated white blood cell count, unspecified; Z79.82 Long term (current) use of aspirin

== ENCOUNTER 2020-07-26 08:39 | Observation (INO) ==
[2020-07-26] MEDS ORDERED: ONDANSETRON HCL/PF 2 MG/ML VIAL IV ONE (08:55)
[2020-07-26] MEDS ORDERED: ACETAMINOPHEN 1,000 MG/100 ML BTL IV ONE (08:56)
--- NOTE | 2020-07-26 09:13 | ERNOTE ---
Back Pain ER HPI Date of Service: 07/26/20 Presenting Symptoms: other - "sick" Time Seen by Provider: 07/26/20 08:54 Source: patient Exam Limitations: clinical condition Immunizations: IMMUNIZATION HX Immunizations Up to Date Yes History of Influenza Vaccine No Hx Pneumococcal Vaccination No Allergies/Adverse Reactions: Allergies atorvastatin Allergy (Mild, Verified 06/08/20 10:41) RASH torsemide Allergy (Mild, Verified 06/08/20 10:41) RASH gun powder Allergy (Severe, Uncoded 03/20/18 14:37) Anaphylaxis Home Medications: HOME MEDICATIONS Aspirin 81 mg PO DAILY 05/03/16 [Last Taken Unknown] mometasone 0.1 % topical ointment TP 30 Days #45 03/20/18 [Last Taken Unknown] benazepril 40 mg tablet 40 mg PO DAILY #90 tab 09/26/19 [Last Taken Unknown] furosemide 20 mg tablet 20 mg PO DAILY #90 tab 01/14/20 [Last Taken Unknown] amlodipine 5 mg tablet 5 mg PO DAILY #60 tab 05/05/20 [Last Taken Unknown] atorvastatin 10 mg tablet 10 mg PO HS #90 tab 05/05/20 [Last Taken Unknown] clonidine HCl 0.3 mg tablet See Rx Instructions .ROUTE .COMPLEX #180 unknown measurement unit code: not specified 07/26/20 [Last Taken Unknown] gabapentin 300 mg capsule 300 mg PO TID #270 cap 07/26/20 [Last Taken Unknown] Narrative: Patient is very slow to answer questions and has innumerable complaints. His main complaint is that he feels miserable. Achy all over. Some cough. Nausea with some vomiting. Non-localizing abdominal discomfort. Some achy chest discomfort and SOB. All of these Sx since last night. Unknown fever but has felt like that. No other clear sick contacts. Legs swelling chronically, poss ibly worse than before. Timing: Reports: constant, getting worse Quality/Severity: Reports: severe Location of pain: Reports: other - all over Activities at Onset: Reports: none Recent Injury?: Reports: no Possible Precipitating Factor: Reports: none Modifying Factors - (Improves): Reports: other - nothing Modifying Factors - (Worsens): Reports: other - nothing Associated Symptoms: Reports: nausea/vomiting. Denies: problems urinating Prior Treament: Denies: recently seen, similar symptoms before Review of Systems - Review of Systems Constitutional: Present: chills EYE: Absent: eye pain ENT: Absent: sore throat Respiratory: Present: See HPI Cardiology: Present: See HPI Gastrointestinal/Abdominal: Present: See HPI Genitourinary: Absent: dysuria All Other Systems: All systems neg except as marked Medical History (Last Reviewed 07/26/20 @ 09:10 by Tarik Morse MD) Restless leg syndrome (Chronic) Onset Date: ~02/22/17 HTN (hypertension) (Chronic) I will restart Norvasc 5 mg I will be sure he has enough supply when he come back in 1 month to be sure whether it is working or not HLD (hyperlipidemia) (Chronic) Chronic renal failure (Chronic) The staging to stage III was changed by the accounts payable administrator Influenza vaccine refused Does not receive 05/26/19 BERTIN Peña Stasis dermatitis Onset Date: ~04/2017 Cervicalgia Onset Date: ~02/2017 [place] [facility] Onychomycosis Onset Date: ~11/13/12 Osteoarthritis involving multiple joints on both sides of body Onset Date: ~2008 OA LT knee Peripheral neuropathy Onset Date: Unknown bilaterally Ulcer of foot Onset Date: ~11/13/12 Colonoscopy refused Surgical History: Surgical History (Last Reviewed 07/26/20 @ 09:10 by Tarik Morse MD) H/O shoulder surgery Onset Date: Unknown LT teenager Family History: Family History (Last Reviewed 07/26/20 @ 09:10 by Tarik Morse MD) Father , 35-DM, Glaucoma Diabetes Mother , unsure of age-ND, Stroke Heart disease Social History: (Last Reviewed 07/26/20 @ 09:10 by Tarik Morse MD) Social History: adopted: No foster care: No senior living: No Marital status: Single lives independently: Yes caregiver/support person: No current occupational status: disabled Sexually Active: No Service: No Tobacco: Smoking Status: Never smoker Alcohol: alcohol intake: former Substance Use: substance use type: does not use Dietary Habits: caffeine: Yes Type: coffee Physical Exam - Physical Exam General Appearance: Present: alert, no apparent distress Head Exam: Present: normal inspection, no evidence of injury Eye Exam: Normal inspection: bilateral, PERRL: bilateral Ears, Nose, Throat: Present: normal ENT inspection Neck: Present: normal inspection Respiratory: Present: no respiratory distress, normal breath sounds, no accessory muscle use, lungs clear Cardiovascular/Chest: Present: regular rate, rhythm, normal peripheral pulses Gastrointestinal/Abdominal: Present: normal bowel sounds, nondistended, soft, other - Thre is very mild tendnress to deep palpation diffusely, very mild, no peritoneal signs Back Exam: Absent: CVA tenderness (R), CVA tenderness (L) Extremity Exam: Present: other - bilateral edema, problable LLE cellulitis Neurological Exam: Present: alert, other - no acute unilateral focal motor or sensory deficits Skin Exam: Present: normal color, warm/dry Progress - Results and Orders Patient's Lab Results:: I have reviewed the patient's lab results. - Vital Signs Patient's Vital Signs:: I have reviewed the patient's vital signs. Vital Signs: Vital Signs 07/26/20 08:40 Temperature 36.5 C Pulse Rate 79 Respiratory Rate 22 H Blood Pressure 161/138 H O2 Sat by Pulse Oximetry 100 - EKG EKG #1 EKG: NSR EKG read: Interp. by me EKG Comments: NSR rate 76. Non-specific, no STEMI noted - X-Ray X-Ray #1 X-Ray: chest Interpretation: Interp. by me X-ray Comments: I personally reviewed x-ray image as well as official radiology report X-Ray #2 X-Ray: abdomen Interpretation: Interp. by me X-ray Comments: I personally reviewed x-ray image as well as official radiology report - CT/Ultrasound CT/Ultrasound Narrative: I reviewed official radiology report for CT abd/pelvis - Progress/Reassessment Chief Complaint: Back Pain Progress Note-Subjective: 07/26/20 14:49 It is difficult to clearly delineate his underlying condition here. He has innumerable complaints. He does have apparent cellulitis of his left low leg. No other clear acute life threats. I went as far as CT scan of his abd/pelvis due to his abdominal pain. No clear other process. He felt too bad to go home. I spoke to jose enrique sena who saw him in the ED and OK'd obs. I spoke with Dr Braun who is supervisor carbon electrodes and will admit for further observation, antibiotics and therapy. Departure Clinical Impression: Cellulitis, Abdominal discomfort, Failure to thrive, Chronic renal disease, Body aches, Elevated lactic acid level - Departure Disposition: Still a patient Condition: Stable
[2020-07-26 09:33] LABS: Hematocrit 43.2 % (42.0-52.0); Mean Cell Volume 85.7 fl (78-100); Mean Corpuscular Hemoglobin 27.8 pg (27-31); Mean Corpuscular Hgb Conc 32.4 g/dl (32-36); Mean Platelet Volume 9.7 fl (8-11.3); Neutrophil % 75.8 % (42-75.0); Platelet Count 267 K/mm3 (150-450); Red Blood Count 5.04 M/mm3 (4.7-6.0); White Blood Count 10.5 K/mm3 (4.0-10.5)
[2020-07-26 10:04] LABS: ALT 25 U/L (19-67); AST 21 U/L (0-48); Albumin * 4.4 gm/dl (3.4-5.0); Alkaline Phosphatase * 103 U/L (50-170); Anion Gap 15.2 mmol/L (6.8-13.8); BNP * 175 pg/mL (5-350); BUN/Creatinine Ratio 15.5 (9.0-21.6); Bilirubin, Total 0.7 mg/dL (0.0-1.1); Blood Urea Nitrogen 30 mg/dL (6-23); CK Total * 180 U/L (0-259); Ca. Corrected For Albumin 9.8 mg/dL (8.4-10.2); Calcium * 10.4 mg/dL (7.9-10.9); Carbon Dioxide 23.2 mmol/L (24-32.6); Chloride 102 mmol/L (97-106); Glucose * 112 mg/dL (70-110); Lipase 82 U/L (73-393); Potassium 4.4 mmol/L (3.4-4.6); Sodium 136 mmol/L (132-142)
[2020-07-26 10:07] LABS: Troponin I Less than 0.017 ng/mL (0.00-0.10)
[2020-07-26 10:30] LABS: Urine Bilirubin Negative (NEGATIVE); Urine Ketone Negative (NEGATIVE); Urine Nitrite Negative (NEGATIVE); Urine Protein 15 mg/dL (NEGATIVE); Urine Urobilinogen Normal (NORMAL)
[2020-07-26] MEDS ORDERED: NORMAL SALINE 1,000 ML IV ONE ×2 (10:37→18:25)
[2020-07-26 10:42] LABS: Urine Appearance Clear (CLEAR); Urine Bacteria TRACE; Urine Blood 5 /ul (NEGATIVE); Urine Color Yellow; Urine RBC TRACE /hpf (0-5); Urine WBC TRACE /hpf (0-5)
[2020-07-26] MEDS ORDERED: cefTRIAXone SODIUM 1,000 MG/100 ML BAG IV ONE (14:14)
--- NOTE | 2020-07-26 18:45 | HP ---
Chief Complaint - Chief Complaint Date of Service: 07/26/20 Time of Service: 18:31 Chief Complaint: I have pain all over and nausea and vomiting since yesterday. History of Present Illness: 74-year-old male with past medical history of osteoarthritis, hyperlipidemia, CKD 3, hypertension, cervicalgia, and peripheral neuropathy was evaluated in the ER due to worsening pain in his abdomen, right lower back, and left lower extremity that started several days ago. Patient reports since Sunday he has been feeling ill with occasional nausea and several episodes of nonbloody vomiting. He denies any fever or chills but said he felt cold earlier and had to be covered with blanket. The patient also reports poor appetite and having to force himself to eat and drink. Since then he has been growing increasingly weak and does not feel himself. The patient also reports significant pain in both upper quadrants of his abdomen but says the pain has now become diffuse. Abdominal CT done in the ER was negative for any acute findings but patient was found significantly tender in all 4 quadrants. He also reports vomiting multiple times in the ER. The patient reports his last bowel movement was yesterday morning and says he had normal formed stools. He denies any sick contacts or any recent travel and was found to be negative for COVID- 19. The patient appears acutely ill and mildly dehydrated and in need of some IV fluids. Of note he reports significant pain in his left lower extremity specifically in the left knee and around the left lower leg, physical exam revealed mild erythema that is worse around his ankle and tenderness and warmth to palpation. 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 machine tester Influenza vaccine refused Does not receive 05/26/19 BERTIN Peña Stasis dermatitis Onset Date: ~04/2017 Cervicalgia Onset Date: ~02/2017 [place] [facility] Onychomycosis Onset Date: ~11/13/12 Osteoarthritis involving multiple joints on both sides of body Onset Date: ~2008 OA LT knee Peripheral neuropathy Onset Date: Unknown bilaterally Ulcer of foot Onset Date: ~11/13/12 Colonoscopy refused Surgical History: Surgical History (Last Reviewed 07/26/20 @ 16:11 by Karely Gilbert RN) H/O shoulder surgery Onset Date: Unknown LT teenager Family History: Family History (Last Reviewed 07/26/20 @ 16:10 by Karely Gilbert RN) Father , 35-DM, Glaucoma Diabetes Mother , unsure of age-[place], Stroke Heart disease Social History: (Last Reviewed 07/26/20 @ 16:11 by Karely Gilbert RN) Social History: adopted: No foster care: No half-way: No Marital status: Single lives independently: Yes caregiver/support person: No current occupational status: disabled Sexually Active: No Service: No Tobacco: Smoking Status: Never smoker Alcohol: alcohol intake: former Substance Use: substance use type: does not use Dietary Habits: caffeine: Yes Type: coffee Peds Patient Hx - Developmental: No Pertinent Hx Peds Patient Hx - Medical: No Pertinent Hx Peds Patient Hx - Cardiac/Respiratory: No Pertinent Hx Peds Patient Hx - Surgical: No Surgical History Patient History - Cancer: No Hx of Cancer Review Of Systems (GEN) - Review of Systems Generalized/Overall Review: Present: No Symptoms Reported EENTM: Present: No Symptoms Reported Respiratory: Present: No Symptoms Reported Cardiac: Present: No Symptoms Reported Abdominal: Present: Nausea, Vomiting, Abdominal Pain Genitourinary: Present: No Symptoms Reported Musculoskeletal: Present: Joint Pain - Left knee and left lower extremity pain, Back Pain Neurological: Present: No Symptoms Reported Skin: Present: No Symptoms Reported Endocrine: Present: No Symptoms Reported Immunizations: IMMUNIZATION HX Immunizations Up to Date Yes History of Influenza Vaccine No Hx Pneumococcal Vaccination No Allergies/Adverse Reactions: Allergies Allergy/AdvReac Type Severity Reaction Status Date / Time atorvastatin Allergy Mild RASH Verified 06/08/20 10:41 torsemide Allergy Mild RASH Verified 06/08/20 10:41 Penicillins Allergy Unknown Verified 07/26/20 16:12 gun powder Allergy Severe Anaphylaxis Uncoded 03/20/18 14:37 Home Medications: HOME MEDICATIONS Aspirin 81 mg PO DAILY 05/03/16 [Last Taken Unknown] mometasone 0.1 % topical ointment TP 30 Days #45 03/20/18 [Last Taken Unknown] benazepril 40 mg tablet 40 mg PO DAILY #90 tab 09/26/19 [Last Taken Unknown] furosemide 20 mg tablet 20 mg PO DAILY #90 tab 01/14/20 [Last Taken Unknown] amlodipine 5 mg tablet 5 mg PO DAILY #60 tab 05/05/20 [Last Taken Unknown] atorvastatin 10 mg tablet 10 mg PO HS #90 tab 05/05/20 [Last Taken Unknown] Clonidine HCl 0.3 tab PO BID 07/26/20 [Last Taken Unknown] Mecobalamin [B12 Active] 1,000 mcg PO 07/26/20 [Last Taken Unknown] gabapentin 300 mg capsule 300 mg PO TID #270 cap 07/26/20 [Last Taken Unknown] Exam - Exam Vital Signs: Vital Signs - Last Taken Temp 37.5 C 07/26/20 16:20 Pulse 85 07/26/20 17:10 Resp 18 07/26/20 16:20 BP 172/89 H 07/26/20 16:20 Pulse Ox 98 07/26/20 16:20 Constitutional: Present: Alert, Oriented x3, Cooperative, Well developed, Well nourished, No distress, Elderly, Morbidly obese ENT Exam: Present: normal ENT inspection, hearing grossly normal, pharynx no rmal, TMs normal Eye Exam: bilateral eye: normal inspection, PERRL, EOMI Neck: Present: non-tender, full range of motion, supple, normal inspection, t rachea midline Back Exam: Present: normal inspection, no CVA tenderness, vertebral tenderness - Right lower lumbar tenderness Breasts: Present: Exam deferred, Nontender Respiratory: Present: chest non-tender, lungs clear, normal breath sounds, no respiratory distress, no accessory muscle use Cardiovascular/Chest: Present: normal peripheral pulses, regular rate, rhythm, no chest tenderness, no edema, no gallop, no JVD, no murmur, no rub Peripheral Pulses: dorsalis-pedis (R): 3+, dorsalis-pedis (L): 3+ Abdomen: Present: Normal bowel sounds, soft, nondistended, no hepatospenomegaly, no masses, obese, rebound tenderness /Rectal: Present: Exam deferred Extremity: Present: no pedal edema, no calf tenderness, normal capillary refill, pelvis stable, lower extremity edema, leg pain, pedal edema - Bilateral 1+ pedal edema, other - Mild circumferential erythema, warmth, and tenderness to palpation of left lower extremity. Skin Exam: Present: warm/dry Lymphatic: Present: no adenopathy Neurologic: Present: director of diagnostic imaging II-XII nml as tested, no motor/sensory deficits, alert, normal mood/affect, oriented x 3 Appearance: Present: appropriate appearance, appropriate insight, neat, no memory impairment Eye contact: Present: cooperative, good eye contact, normal speech Thoughts: Present: normal thought pattern, no apparent hallucination Diagnostic Studies: Abnormal Lab Results 07/26/20 07/26/20 07/26/20 Range/Units 09:10 09:10 09:10 RDW 15.0 H (11.5-14.0) % Immature Gran % (Auto) 0.80 H (0.001-0.429) % Immature Gran # (Auto) 0.08 H (0.000-0.0310) K/mm3 Neutrophils % 75.8 H (42-75.0) % Lymphocytes % 16.4 L (20-51) % Neutrophils # 8.0 H (1.3-6.0) K/mm3 Carbon Dioxide 23.2 L (24-32.6) mmol/L Anion Gap 15.2 H (6.8-13.8) mmol/L BUN 30 H (6-23) mg/dL Creatinine 1.93 H (0.4-1.4) mg/dL Est GFR (Non-Af Amer) 37 L (60-130) mL/min Random Glucose 112 H (70-110) mg/dL Lactic Acid, Venous 3.2 H* (0.4-2.0) mmol/L Total Protein 9.0 H (6.2-8.2) gm/dL Urine pH (5.0-7.0) pH Urine Protein (NEGATIVE) mg/dL Urine Blood (NEGATIVE) /ul 07/26/20 07/26/20 Range/Units 10:18 12:13 RDW (11.5-14.0) % Immature Gran % (Auto) (0.001-0.429) % Immature Gran # (Auto) (0.000-0.0310) K/mm3 Neutrophils % (42-75.0) % Lymphocytes % (20-51) % Neutrophils # (1.3-6.0) K/mm3 Carbon Dioxide (24-32.6) mmol/L Anion Gap (6.8-13.8) mmol/L BUN (6-23) mg/dL Creatinine (0.4-1.4) mg/dL Est GFR (Non-Af Amer) (60-130) mL/min Random Glucose (70-110) mg/dL Lactic Acid, Venous 2.8 H* (0.4-2.0) mmol/L Total Protein (6.2-8.2) gm/dL Urine pH 8.0 H (5.0-7.0) pH Urine Protein 15 H (NEGATIVE) mg/dL Urine Blood 5 H (NEGATIVE) /ul Laboratory Results WBC 10.5 K/mm3 (4.0-10.5) 07/26/20 09:10 RBC 5.04 M/mm3 (4.7-6.0) 07/26/20 09:10 Hgb 14.0 gm/dL (13.5-18.0) 07/26/20 09:10 Hct 43.2 % (42.0-52.0) 07/26/20 09:10 MCV 85.7 fl (78-100) 07/26/20 09:10 MCH 27.8 pg (27-31) 07/26/20 09:10 MCHC 32.4 g/dl (32-36) 07/26/20 09:10 RDW 15.0 % (11.5-14.0) H 07/26/20 09:10 Plt Count 267 K/mm3 (150-450) 07/26/20 09:10 MPV 9.7 fl (8-11.3) 07/26/20 09:10 Immature Gran % (Auto) 0.80 % (0.001-0.429) H 07/26/20 09:10 Immature Gran # (Auto) 0.08 K/mm3 (0.000-0.0310) H 07/26/20 09:10 Neutrophils % 75.8 % (42-75.0) H 07/26/20 09:10 Lymphocytes % 16.4 % (20-51) L 07/26/20 09:10 Monocytes % 5.8 % (0.0-9) 07/26/20 09:10 Eosinophils % 0.8 % (0.0-3.0) 07/26/20 09:10 Basophils % 0.4 % (0.0-1.0) 07/26/20 09:10 Nucleated RBC % 0.0 k/mm3 (0-1) 07/26/20 09:10 Neutrophils # 8.0 K/mm3 (1.3-6.0) H 07/26/20 09:10 Lymphocytes # 1.72 k/mm3 (1.5-3.5) 07/26/20 09:10 Monocytes # 0.6 k/mm3 (0.0-1.0) 07/26/20 09:10 Eosinophils # 0.1 k/mm3 (0.0-0.7) 07/26/20 09:10 Absolute Basophils 0.0 k/mm3 (0.0-0.1) 07/26/20 09:10 Sodium 136 mmol/L (132-142) 07/26/20 09:10 Plasma Sodium 136 mmol/L (130-142) 07/26/20 09:10 Potassium 4.4 mmol/L (3.4-4.6) 07/26/20 09:10 Chloride 102 mmol/L (97-106) 07/26/20 09:10 Carbon Dioxide 23.2 mmol/L (24-32.6) L 07/26/20 09:10 Anion Gap 15.2 mmol/L (6.8-13.8) H 07/26/20 09:10 BUN 30 mg/dL (6-23) H 07/26/20 09:10 Creatinine 1.93 mg/dL (0.4-1.4) H 07/26/20 09:10 Est GFR (Non-Af Amer) 37 mL/min (60-130) L 07/26/20 09:10 BUN/Creatinine Ratio 15.5 (9.0-21.6) 07/26/20 09:10 Random Glucose 112 mg/dL (70-110) H 07/26/20 09:10 Lactic Acid, Venous 2.8 mmol/L (0.4-2.0) H* 07/26/20 12:13 Calcium 10.4 mg/dL (7.9-10.9) 07/26/20 09:10 Calcium Adj for Albumin 9.8 mg/dL (8.4-10.2) 07/26/20 09:10 Total Bilirubin 0.7 mg/dL (0.0-1.1) 07/26/20 09:10 AST 21 U/L (0-48) 07/26/20 09:10 ALT 25 U/L (19-67) 07/26/20 09:10 Alkaline Phosphatase 103 U/L (50-170) 07/26/20 09:10 Creatine Kinase 180 U/L (0-259) 07/26/20 09:10 Troponin I Less than 0.017 ng/mL (0.00-0.10) 07/26/20 09:10 B-Natriuretic Peptide 175 pg/mL (5-350) 07/26/20 09:10 Total Protein 9.0 gm/dL (6.2-8.2) H 07/26/20 09:10 Albumin 4.4 gm/dl (3.4-5.0) 07/26/20 09:10 Lipase 82 U/L (73-393) 07/26/20 09:10 Urine Color Yellow 07/26/20 10:18 Urine Appearance Clear (CLEAR) 07/26/20 10:18 Urine pH 8.0 pH (5.0-7.0) H 07/26/20 10:18 Ur Specific [place] 1.020 SP.GR. (1.005-1.030) 07/26/20 10:18 Urine Protein 15 mg/dL (NEGATIVE) H 07/26/20 10:18 Urine Glucose (UA) Negative mg/dL (NEGATIVE) 07/26/20 10:18 Urine Ketones Negative mg/dL (NEGATIVE) 07/26/20 10:18 Urine Blood 5 /ul (NEGATIVE) H 07/26/20 10:18 Urine Nitrate Negative (NEGATIVE) 07/26/20 10:18 Urine Bilirubin Negative mg/dl (NEGATIVE) 07/26/20 10:18 Prot Sulfosalicylic Acd 1+ mg/dL (0) 07/26/20 10:18 Urine Urobilinogen Normal EU/dl (NORMAL) 07/26/20 10:18 Ur Leukocyte Esterase Negative /ul (NEGATIVE) 07/26/20 10:18 Urine RBC Trace /hpf (0-5) 07/26/20 10:18 Urine WBC Trace /hpf (0-5) 07/26/20 10:18 Ur Epithelial Cells Trace /hpf (0-5) 07/26/20 10:18 Urine Bacteria Trace (NONE) 07/26/20 10:18 Urine Culture Comments No culture indicated 07/26/20 10:18 Influenza Type A Ag Negative (NEGATIVE) 07/26/20 09:55 Influenza Type B Ag Negative (NEGATIVE) 07/26/20 09:55 SARS-CoV-2 (PCR) Not detected (NotDetected) 07/26/20 09:51 Assessment/Plan - Narrative Narrative: Patient was evaluated medical chart was reviewed and decision to admit for diagnosis of dehydration, left lower extremity cellulitis, and nausea and vomiting was made. We will keep the patient overnight on our MedSur fernandez to treat with IV hydration and IV antibiotics. He will also be administered medications for pain due to significant pain in his abdomen, left lower extremity, and left lower back. In the meantime we will keep the patient n.p.o. until his nausea and vomiting resolves and reevaluate him in the morning. All of his routine medication including his antihypertensives were reconciled to be administered during the hospitalization. - Assessment/Plan (1) Dehydration Problem: Acute (2) Acute pain Problem: Acute (3) HTN (hypertension) Problem: Chronic Qualifiers: Hypertension type: essential hypertension Qualified Code(s): I10 - Essential (primary) hypertension (4) Left leg cellulitis Problem: Acute (5) Abdominal discomfort Problem: Acute (6) Chronic renal disease Problem: Acute (7) Body aches Problem: Acute (8) Elevated lactic acid level Problem: Acute (9) Vomiting Problem: Acute Qualifiers: (10) Acute medical illness Problem: Acute
[2020-07-26] MEDS: ONDANSETRON HCL 4 MG TABLET PO PRN (19:15)
[2020-07-26] MEDS: amLODIPine BESYLATE 5 MG TABLET PO SCH (19:15)
[2020-07-26] MEDS: GABAPENTIN 300 MG CAPSULE PO SCH (19:15)
[2020-07-26] MEDS: HYDROmorphone HCL 1 MG/ML DISP.SYRIN IV PRN ×2 (19:16→23:28)
[2020-07-26] MEDS: ASPIRIN 81 MG TAB.CHEW PO SCH (19:16)
[2020-07-26] MEDS ORDERED: PANTOPRAZOLE SODIUM 20 MG TABLET.DR PO SCH (21:00)
[2020-07-26] MEDS ORDERED: ATORVASTATIN CALCIUM 10 MG PO SCH (21:00)
[2020-07-26] MEDS: PANTOPRAZOLE SODIUM 40 MG in NORMAL SALINE 100 ML IV SCH (21:04)
[2020-07-26] MEDS: CLONIDINE HCL 0.1 MG TABLET PO SCH (22:43)
[2020-07-27] MEDS: ONDANSETRON HCL 4 MG TABLET PO PRN (06:42)
[2020-07-27] MEDS: ACETAMINOPHEN 500 MG TABLET PO PRN ×2 (06:54→12:01)
[2020-07-27] MEDS: PANTOPRAZOLE SODIUM 40 MG in NORMAL SALINE 100 ML IV SCH (06:54)
[2020-07-27] MEDS: ASPIRIN 81 MG TAB.CHEW PO SCH (08:22)
[2020-07-27] MEDS: GABAPENTIN 300 MG CAPSULE PO SCH ×2 (08:22→12:01)
[2020-07-27] MEDS: CLONIDINE HCL 0.1 MG TABLET PO SCH (08:22)
[2020-07-27] MEDS: amLODIPine BESYLATE 5 MG TABLET PO SCH (08:22)
[2020-07-27] MEDS ORDERED: ENALAPRIL MALEATE 20 MG TABLET PO SCH (09:00)
[2020-07-27] MEDS ORDERED: FUROSEMIDE 20 MG TABLET PO SCH (09:00)
[2020-07-27] MEDS ORDERED: CYANOCOBALAMIN 1,000 MCG TABLET PO SCH (09:00)
--- NOTE | 2020-07-27 10:33 | DS ---
(1) Dehydration Problem: Resolved (2) Acute pain Problem: Acute (3) HTN (hypertension) Problem: Chronic Qualifiers: Hypertension type: essential hypertension Qualified Code(s): I10 - Essential (primary) hypertension (4) Left leg cellulitis Problem: Acute (5) Abdominal discomfort Problem: Resolved (6) Chronic renal disease Problem: Chronic Qualifiers: Chronic kidney disease stage: stage 3 (moderate) (7) Body aches Problem: Acute (8) Elevated lactic acid level Problem: Resolved (9) Vomiting Problem: Resolved Qualifiers: (10) Acute medical illness Problem: Acute Date of Discharge:: 07/27/20 Hospital Course: 74-year-old male admitted for dehydration, generalized weakness, nausea and vomiting, cellulitis of the left lower extremity, and acute pain and right lower back left knee and left lower leg was evaluated at bedside this morning was found to be afebrile and in no acute distress. Patient appears more comfortable and alert this morning, he reports improvement in his symptoms. His nausea and vomiting have resolved and his pain is better. Patient maintained stable vitals throughout the night and no major adverse events were reported. It is my impression that the patient was significantly dehydrated due to multiple days of poor oral intake because he was feeling ill. We will start him on a mechanical soft diet since he does not have his dentures in. If patient tolerates will discharge him home with instructions to restart his routine meds and follow-up with his PCP in 5 days. Patient tolerated the soft mechanical diet without any issues, he denies any nausea and has not vomited so we will discharge him home with prescriptions for additional days of antibiotics for a cellulitis and pain medications. Procedures Performed: none Results and Findings: Pending Mircobiology Results 07/26/20 09:30 Blood Blood Culture - Preliminary NO GROWTH 24 HOURS 07/26/20 09:10 Blood Blood Culture - Preliminary NO GROWTH 24 HOURS Lab Pending Results 07/26/20 09:10: WBC 10.5, RBC 5.04, Hgb 14.0, Hct 43.2, MCV 85.7, MCH 27.8, MCHC 32.4, RDW 15.0 H, Plt Count 267, MPV 9.7, Immature Gran % (Auto) 0.80 H, Immature Gran # (Auto) 0.08 H, Neutrophils % 75.8 H, Lymphocytes % 16.4 L, Monocytes % 5.8, Eosinophils % 0.8, Basophils % 0.4, Nucleated RBC % 0.0, Neutrophils # 8.0 H, Lymphocytes # 1.72, Monocytes # 0.6, Eosinophils # 0.1, Absolute Basophils 0.0 07/26/20 09:10: Sodium 136, Plasma Sodium 136, Potassium 4.4, Chloride 102, Carbon Dioxide 23.2 L, Anion Gap 15.2 H, BUN 30 H, Creatinine 1.93 H, Est GFR (Non-Af Amer) 37 L, BUN/Creatinine Ratio 15.5, Random Glucose 112 H, Calcium 10.4, Calcium Adj for Albumin 9.8, Total Bilirubin 0.7, AST 21, ALT 25, Alkaline Phosphatase 103, Creatine Kinase 180, Troponin I Less than 0.017, B-Natriuretic Peptide 175, Total Protein 9.0 H, Albumin 4.4, Lipase 82 07/26/20 09:10: Lactic Acid, Venous 3.2 H* 07/26/20 09:51: SARS-CoV-2 (PCR) Not detected 07/26/20 09:55: Influenza Type A Ag Negative, Influenza Type B Ag Negative 07/26/20 10:18: Urine Color Yellow, Urine Appearance Clear, Urine pH 8.0 H, Ur Specific Curtis 1.020, Urine Protein 15 H, Urine Glucose (UA) Negative, Urine Ketones Negative, Urine Blood 5 H, Urine Nitrate Negative, Urine Bilirubin Negative, Prot Sulfosalicylic Acd 1+, Urine Urobilinogen Normal, Ur Leukocyte Esterase Negative, Urine RBC Trace, Urine WBC Trace, Ur Epithelial Cells Trace, Urine Bacteria Trace, Urine Culture Comments No culture indicated 07/26/20 12:13: Lactic Acid, Venous 2.8 H* Discharge Location: Home Disposition: Home self-care Condition: Fair Face to Face Encounter completed per [facility] Guidelines: No Discharge Activity: Activity as tolerated Discharge Diet: General/regular food Referrals: Vito Khan MD [Primary Care Provider] - Prescriptions (Any new or edited meds): Sulfamethoxazole/Trimethoprim [Bactrim Ds] 160 mg PO Q12H 5 Days #10 tab Transmission Status: Pending to [facility], [place], [place] oxyCODONE HCL/ACETAMINOPHEN [Percocet 5 MG/325 MG] 1 tab PO Q6H PRN #30 tablet PRN Reason: Pain Transmission Status: Received by [place], [place] Ondansetron HCl [Zofran] 4 mg PO Q8H #20 tab Transmission Status: Received by [place], [place] Complete Home Medications List: Complete Home Medication List: Aspirin 81 mg PO DAILY 05/03/16 mometasone 0.1 % topical ointment TP 30 Days #45 03/20/18 benazepril 40 mg tablet 40 mg PO DAILY #90 tab 09/26/19 furosemide 20 mg tablet 20 mg PO DAILY #90 tab 01/14/20 amlodipine 5 mg tablet 5 mg PO DAILY #60 tab 05/05/20 atorvastatin 10 mg tablet 10 mg PO HS #90 tab 05/05/20 Clonidine HCl 0.3 tab PO BID 07/26/20 Mecobalamin [B12 Active] 1,000 mcg PO 07/26/20 gabapentin 300 mg capsule 300 mg PO TID #270 cap 07/26/20 Ondansetron HCl [Zofran] 4 mg PO Q8H #20 tab 07/27/20 Sulfamethoxazole/Trimethoprim [Bactrim Ds] 160 mg PO Q12H 5 Days #10 tab 07/27/20 oxyCODONE HCL/ACETAMINOPHEN [Percocet 5 MG/325 MG] 1 tab PO Q6H PRN #30 tablet 07/27/20
[2020-07-27] MEDS ORDERED: oxyCODONE HCL/ACETAMINOPHEN 1 TAB TABLET PO ONE (15:37)
[2020-07-27 16:27] VITALS: BP 134/86
== END 2020-07-27 16:02 | disposition home or self-care (01) ==
LOC: MS 08:39 → ER 08:39 → MS 16:01
PROVIDERS: ADMIT Family Medicine; ATTEND Family Medicine

== ENCOUNTER 2020-08-02 10:09 | Observation (INO) ==
[2020-08-02] MEDS ORDERED: NORMAL SALINE 1,000 ML IV ONE (10:57)
[2020-08-02 10:58] LABS: Hematocrit 45.7 % (42.0-52.0); Hemoglobin 15.1 gm/dL (13.5-18.0); Mean Cell Volume 83.9 fl (78-100); Mean Corpuscular Hemoglobin 27.7 pg (27-31); Mean Platelet Volume 9.2 fl (8-11.3); Neutrophil % 74.2 % (42-75.0); Platelet Count 391 K/mm3 (150-450); Red Blood Count 5.45 M/mm3 (4.7-6.0); White Blood Count 17.5 K/mm3 (4.0-10.5)
[2020-08-02] MEDS ORDERED: ACETAMINOPHEN 1,000 MG/100 ML BTL IV ONE (10:58)
[2020-08-02] MEDS ORDERED: ONDANSETRON HCL/PF 2 MG/ML VIAL IV ONE (10:58)
--- NOTE | 2020-08-02 11:02 | ERNOTE ---
Abdominal HPI - Narrative Date of Service: 08/02/20 - General Chief Complaint: Abdominal Pain Time Seen by Provider: 08/02/20 10:37 Source: patient, RN notes reviewed, past records Exam Limitations: clinical condition, hard of hearing - Immun/Allergies/Home Medications Immunizatons: IMMUNIZATION HX Immunizations Up to Date Yes History of Influenza Vaccine More Information Required Hx Pneumococcal Vaccination More Information Required Allergies/Adverse Reactions: Allergies atorvastatin Allergy (Mild, Verified 08/02/20 10:47) RASH torsemide Allergy (Mild, Verified 08/02/20 10:47) RASH Penicillins Allergy (Unknown, Verified 08/02/20 10:47) gun powder Allergy (Severe, Uncoded 08/02/20 10:47) Anaphylaxis Home Medications: HOME MEDICATIONS Aspirin 81 mg PO DAILY 05/03/16 [Last Taken Unknown] mometasone 0.1 % topical ointment TP 30 Days #45 03/20/18 [Last Taken Unknown] benazepril 40 mg tablet 40 mg PO DAILY #90 tab 09/26/19 [Last Taken Unknown] furosemide 20 mg tablet 20 mg PO DAILY #90 tab 01/14/20 [Last Taken Unknown] amlodipine 5 mg tablet 5 mg PO DAILY #60 tab 05/05/20 [Last Taken Unknown] atorvastatin 10 mg tablet 10 mg PO HS #90 tab 05/05/20 [Last Taken Unknown] Clonidine HCl 0.3 tab PO BID 07/26/20 [Last Taken Unknown] Mecobalamin [B12 Active] 1,000 mcg PO DAILY 07/26/20 [Last Taken Unknown] gabapentin 300 mg capsule 300 mg PO TID #270 cap 07/26/20 [Last Taken Unknown] Ondansetron HCl [Zofran] 4 mg PO Q8H #20 tab 07/27/20 [Last Taken Unknown] oxyCODONE HCL/ACETAMINOPHEN [Percocet 5 MG/325 MG] 1 tab PO Q6H PRN #30 tab 07/27/20 [Last Taken Unknown] - History of Present Illness Narrative: James is a 74 year old male who presents to the ED from home for abdominal pain that radiates into his chest. He reports that this began 3 or 4 weeks ago. He was hospitalized on 07/26 for cellulitis and dehydration. He was contacted by a care coordination nurse from the clinic on 07/28 and denied pain at that time. He also reports vomiting 3 times today. He was discharged home on Bactrim for 5 days. He is not sure if he has finished this. He was also prescribed Percocet and Zofran. He is not sure if he has been taking these medications either. He is a very poor historian and is moaning continuously. A CT scan of the abdomen was done on 07/26. This was without acute findings. Timing: unsure Quality: severe Activities at Onset: none Prior Treatment: Present: recently seen, recently hospitalized, currently on ant ibiotics Review of Systems - Narrative Narrative: Poor historian, unable to complete ROS Medical History (Last Reviewed 08/02/20 @ 11:52 by Marian Pedroza NP) Restless leg syndrome (Chronic) Onset Date: ~02/22/17 HTN (hypertension) (Chronic) I will restart Norvasc 5 mg I will be sure he has enough supply when he come back in 1 month to be sure whether it is working or not HLD (hyperlipidemia) (Chronic) Chronic renal failure (Chronic) The staging to stage III was changed by the preschool adviser Influenza vaccine refused Does not receive 05/26/19 BERTIN Peña Stasis dermatitis Onset Date: ~04/2017 Cervicalgia Onset Date: ~02/2017 [place] [facility] Onychomycosis Onset Date: ~11/13/12 Osteoarthritis involving multiple joints on both sides of body Onset Date: ~2008 OA LT knee Peripheral neuropathy Onset Date: Unknown bilaterally Ulcer of foot Onset Date: ~11/13/12 Colonoscopy refused Surgical History: Surgical History (Last Reviewed 08/02/20 @ 11:52 by Marian Pedroza NP) H/O shoulder surgery Onset Date: Unknown LT teenager Family History: Family History (Last Reviewed 08/02/20 @ 11:52 by Marian Pedroza NP) Father , 35-DM, Glaucoma Diabetes Mother , unsure of age-[place], Stroke Heart disease Social History: (Last Reviewed 08/02/20 @ 11:52 by Marian Pedroza NP) Social History: adopted: No foster care: No prison: No Marital status: Single lives independently: Yes caregiver/support person: No current occupational status: disabled Sexually Active: No Service: No Tobacco: Smoking Status: Never smoker Alcohol: alcohol intake: former Substance Use: substance use type: does not use Dietary Habits: caffeine: Yes Type: coffee Physical Exam - Physical Exam General Appearance: Present: alert, mild distress, obese, other - Moaning Head Exam: Present: normal inspection Eye Exam: Normal inspection: bilateral Respiratory: Present: no respiratory distress, normal breath sounds, no accessory muscle use, lungs clear, chest tenderness - Right anterior chest Cardiovascular/Chest: Present: no murmur, normal peripheral pulses, tachycardia Gastrointestinal/Abdominal: Present: normal bowel sounds, tenderness - Throughout abdomen, distended - Mild, bloated appearing Back Exam: Present: normal inspection, normal range of motion, no vertebral tenderness Extremity Exam: Present: normal inspection, no edema Neurological Exam: Present: alert. Absent: normal mood/affect, no motor/sensory deficits - [place] Skin Exam: Present: normal color, warm/dry Progress - Results and Orders Patient's Lab Results:: I have reviewed the patient's lab results. - Vital Signs Patient's Vital Signs:: I have reviewed the patient's vital signs. Vital Signs: Vital Signs 08/02/20 10:22 Temperature 37.0 C Pulse Rate 95 Respiratory Rate 20 Blood Pressure 159/100 H O2 Sat by Pulse Oximetry 97 - EKG EKG #1 EKG: NSR EKG read: Reviewed by me - X-Ray X-Ray #1 X-Ray: abdomen Interpretation: Reviewed by me X-ray Comments: TWO VIEW ABDOMEN / ABDOMINAL SERIES COMPARISON: None Technique: Supine AP and crosstable lateral views projections of the abdomen and pelvis were obtained. Findings: There are small amounts of gas identified within the colon. There is minimal gas in the stomach and small bowel. There is a moderately large amount stool in the right colon with small stool remaining colon. I do not see evidence for gaseous dilatation of the bowel, air-fluid levels, or free air. The visualized lung bases are clear. The renal shadows are poorly visualized. IMPRESSION: 1. NONSPECIFIC BOWEL GAS PATTERN. 2. MODERATE AMOUNT STOOL IN THE RIGHT COLON AND SMALL AMOUNT STOOL IN THE REMAINING COLON Electronically signed by Jaswinder Rios M.D.. - Progress/Reassessment Chief Complaint: Abdominal Pain Progress:: Unchanged Progress Note-Subjective: 08/02/20 13:30 The patient's renal function is significantly worse today than on his last admission a week ago with a creatinine of 3.03. He continues to be dehydrated. Lactic acid mildly elevated at 2.9. WBC elevated at 17.5K today, was normal last week. Etiology of his abdominal pain is unclear, there is moderate stool retention present on his abdominal xray. His PCP is off, Dr. Vickers was contacted in her absence and agreed to admit the patient. COVID test ordered. 08/02/20 15:48 Patient is negative for COVID, waiting for bed assignment. Patient had a small bowel movement buy his abdominal pain has again worsened. Morphine repeated. Repeat lactic acid is 2.2 after a liter of NS. Departure Clinical Impression: Dehydration Acute on chronic renal failure Qualifiers: Acute renal failure type: unspecified Chronic kidney disease stage: unspecified stage Qualified Code(s): N17.9 - Acute kidney failure, unspecified Abdominal pain Qualifiers: Abdominal location: generalized Qualified Code(s): R10.84 - Generalized abdo kahlil pain - Departure Disposition: Still a patient Condition: Stable
[2020-08-02] MEDS ORDERED: MORPHINE SULFATE 4 MG/ML SYRG IV ONE ×2 (11:56→14:37)
[2020-08-02 12:03] LABS: ALT 27 U/L (19-67); AST 18 U/L (0-48); Albumin * 4.1 gm/dl (3.4-5.0); Alkaline Phosphatase * 110 U/L (50-170); Anion Gap 19.2 mmol/L (6.8-13.8); BUN/Creatinine Ratio 12.9 (9.0-21.6); Bilirubin, Total 0.8 mg/dL (0.0-1.1); Blood Urea Nitrogen 39 mg/dL (6-23); Ca. Corrected For Albumin 9.2 mg/dL (8.4-10.2); Calcium * 9.6 mg/dL (7.9-10.9); Carbon Dioxide 19.8 mmol/L (24-32.6); Chloride 96 mmol/L (97-106); Glucose * 131 mg/dL (70-110); Sodium 131 mmol/L (132-142); Total Protein 8.9 gm/dL (6.2-8.2); Troponin I Less than 0.017 ng/mL (0.00-0.10)
[2020-08-02 12:51] LABS: Urine Bilirubin 1 mg/dl (NEGATIVE); Urine Blood Negative /ul (NEGATIVE); Urine Ketone Negative (NEGATIVE); Urine Nitrite Negative (NEGATIVE); Urine Protein Negative (NEGATIVE); Urine Specific Gravity >=1.030 SP.GR. (1.005-1.030); Urine Urobilinogen Normal (NORMAL)
[2020-08-02 13:01] LABS: Urine Appearance Cloudy (CLEAR); Urine Bacteria None Seen; Urine Color Amber; Urine RBC TRACE /hpf (0-5); Urine WBC TRACE /hpf (0-5)
[2020-08-02 13:46] LABS: Amylase * 36 U/L (25-115); Lipase 53 U/L (73-393)
[2020-08-02] MEDS: NORMAL SALINE 1,000 ML IV PRN (19:40)
--- NOTE | 2020-08-02 23:43 | HP ---
Chief Complaint - Chief Complaint Date of Service: 08/02/20 Time of Service: 17:00 Chief Complaint: Abdominal pain History of Present Illness: Jonah is a 74 yo male who presents to the ED with abdominal pain. He has not had a bowel movement for 4 days. He has recently been on narcotics for cellulitis. He was discharged from the hospital 07/26/20. He has not been eating or drinking well since then. Abdominal xray showed stool retention. CT of his abdomen was done on 07/26 which did not show acute abnormalities. Today his creatinine is 3 and his creatinine normally is 1.7-2.2. Medical History (Last Reviewed 08/02/20 @ 19:30 by Lynsey Arroyo RN) Restless leg syndrome (Chronic) Onset Date: ~02/22/17 HTN (hypertension) (Chronic) I will restart Norvasc 5 mg I will be sure he has enough supply when he come back in 1 month to be sure whether it is working or not HLD (hyperlipidemia) (Chronic) Chronic renal failure (Chronic) The staging to stage III was changed by the telephoto installer Influenza vaccine refused Does not receive 05/26/19 BERTIN Peña Stasis dermatitis Onset Date: ~04/2017 Cervicalgia Onset Date: ~02/2017 [place] [facility] Onychomycosis Onset Date: ~11/13/12 Osteoarthritis involving multiple joints on both sides of body Onset Date: ~2008 OA LT knee Peripheral neuropathy Onset Date: Unknown bilaterally Ulcer of foot Onset Date: ~11/13/12 Colonoscopy refused Surgical History: Surgical History (Last Reviewed 08/02/20 @ 19:30 by Lynsey Arroyo RN) H/O shoulder surgery Onset Date: Unknown LT teenager Family History: Family History (Last Reviewed 08/02/20 @ 19:30 by Lynsey Arroyo RN) Father , 35-DM, Glaucoma Diabetes Mother , unsure of age-[place], Stroke Heart disease Social History: (Last Reviewed 08/02/20 @ 19:30 by Lynsey Arroyo RN) Social History: adopted: No foster care: No fpc: No Marital status: Single lives independently: Yes caregiver/support person: No current occupational status: disabled Sexually Active: No Service: No Tobacco: Smoking Status: Never smoker Alcohol: alcohol intake: former Substance Use: substance use type: does not use Dietary Habits: caffeine: Yes Type: coffee Review Of Systems (GEN) - Review of Systems Generalized/Overall Review: Present: Weakness. Absent: Chills, Fever EENTM: Present: No Symptoms Reported Respiratory: Absent: Cough, Shortness of Breath Cardiac: Present: Chest Pain. Absent: Edema Abdominal: Present: Nausea, Abdominal Pain, Constipation. Absent: Vomiting, Melena Genitourinary: Present: No Symptoms Reported Musculoskeletal: Present: No Symptoms Reported Neurological: Present: No Symptoms Reported Skin: Present: No Symptoms Reported Endocrine: Present: No Symptoms Reported Immunizations: IMMUNIZATION HX Immunizations Up to Date Yes History of Influenza Vaccine More Information Required Hx Pneumococcal Vaccination More Information Required Allergies/Adverse Reactions: Allergies Allergy/AdvReac Type Severity Reaction Status Date / Time atorvastatin Allergy Mild RASH Verified 08/02/20 10:47 torsemide Allergy Mild RASH Verified 08/02/20 10:47 Penicillins Allergy Unknown Verified 08/02/20 10:47 gun powder Allergy Severe Anaphylaxis Uncoded 08/02/20 10:47 Home Medications: HOME MEDICATIONS Aspirin 81 mg PO DAILY 05/03/16 [Last Taken Unknown] mometasone 0.1 % topical ointment TP 30 Days #45 03/20/18 [Last Taken Unknown] benazepril 40 mg tablet 40 mg PO DAILY #90 tab 09/26/19 [Last Taken Unknown] furosemide 20 mg tablet 20 mg PO DAILY #90 tab 01/14/20 [Last Taken Unknown] amlodipine 5 mg tablet 5 mg PO DAILY #60 tab 05/05/20 [Last Taken Unknown] atorvastatin 10 mg tablet 10 mg PO HS #90 tab 05/05/20 [Last Taken Unknown] Clonidine HCl 0.3 tab PO BID 07/26/20 [Last Taken Unknown] Mecobalamin [B12 Active] 1,000 mcg PO DAILY 07/26/20 [Last Taken Unknown] gabapentin 300 mg capsule 300 mg PO TID #270 cap 07/26/20 [Last Taken Unknown] Ondansetron HCl [Zofran] 4 mg PO Q8H #20 tab 07/27/20 [Last Taken Unknown] oxyCODONE HCL/ACETAMINOPHEN [Percocet 5 MG/325 MG] 1 tab PO Q6H PRN #30 tab 07/27/20 [Last Taken Unknown] Exam - Exam Vital Signs: Vital Signs - Last Taken Temp 36.5 C 12/14/20 19:30 Pulse 92 08/02/20 19:30 Resp 20 08/02/20 19:30 BP 115/70 08/02/20 19:30 Pulse Ox 96 08/02/20 19:30 Comprehensive Narrative: Frequently moans in pain with pain ranging from all his joints to abdomen Constitutional: Present: Alert, Oriented x3, Cooperative ENT Exam: Present: hearing grossly normal Eye Exam: bilateral eye: normal inspection Respiratory: Present: lungs clear, normal breath sounds, no respiratory distress Cardiovascular/Chest: Present: regular rate, rhythm, no murmur Peripheral Pulses: radial (R): 2+, radial (L): 2+ Abdomen: Present: Normal bowel sounds, soft, tender - diffuse tenderness Skin Exam: Present: normal color, warm/dry, no cyanosis Eye contact: Present: cooperative, good eye contact, normal speech Thoughts: Present: normal thought pattern, no apparent hallucination Diagnostic Studies: Abnormal Lab Results 08/02/20 08/02/20 08/02/20 Range/Units 10:45 10:45 10:45 WBC 17.5 H (4.0-10.5) K/mm3 RDW 15.0 H (11.5-14.0) % Immature Gran % (Auto) 0.50 H (0.001-0.429) % Immature Gran # (Auto) 0.09 H (0.000-0.0310) K/mm3 Lymphocytes % 16.5 L (20-51) % Neutrophils # 13.0 H (1.3-6.0) K/mm3 Monocytes # 1.4 H (0.0-1.0) k/mm3 Sodium 131 L (132-142) mmol/L Chloride 96 L (97-106) mmol/L Carbon Dioxide 19.8 L (24-32.6) mmol/L Anion Gap 19.2 H (6.8-13.8) mmol/L BUN 39 H (6-23) mg/dL Creatinine 3.03 H D (0.4-1.4) mg/dL Est GFR (Non-Af Amer) 22 L D (60-130) mL/min Random Glucose 131 H (70-110) mg/dL Lactic Acid, Venous 2.9 H* (0.4-2.0) mmol/L Total Protein 8.9 H (6.2-8.2) gm/dL Lipase (73-393) U/L Urine Bilirubin (NEGATIVE) mg/dl Urine Ictotest (NEGATIVE) Hyaline Casts (NONE) /LPF 08/02/20 08/02/20 08/02/20 Range/Units 10:45 11:34 13:50 WBC (4.0-10.5) K/mm3 RDW (11.5-14.0) % Immature Gran % (Auto) (0.001-0.429) % Immature Gran # (Auto) (0.000-0.0310) K/mm3 Lymphocytes % (20-51) % Neutrophils # (1.3-6.0) K/mm3 Monocytes # (0.0-1.0) k/mm3 Sodium (132-142) mmol/L Chloride (97-106) mmol/L Carbon Dioxide (24-32.6) mmol/L Anion Gap (6.8-13.8) mmol/L BUN (6-23) mg/dL Creatinine (0.4-1.4) mg/dL Est GFR (Non-Af Amer) (60-130) mL/min Random Glucose (70-110) mg/dL Lactic Acid, Venous 2.2 H* (0.4-2.0) mmol/L Total Protein (6.2-8.2) gm/dL Lipase 53 L (73-393) U/L Urine Bilirubin 1 H (NEGATIVE) mg/dl Urine Ictotest Positive H (NEGATIVE) Hyaline Casts 5-10 H (NONE) /LPF Laboratory Results WBC 17.5 K/mm3 (4.0-10.5) H 08/02/20 10:45 RBC 5.45 M/mm3 (4.7-6.0) 08/02/20 10:45 Hgb 15.1 gm/dL (13.5-18.0) 08/02/20 10:45 Hct 45.7 % (42.0-52.0) 08/02/20 10:45 MCV 83.9 fl (78-100) 08/02/20 10:45 MCH 27.7 pg (27-31) 08/02/20 10:45 MCHC 33.0 g/dl (32-36) 08/02/20 10:45 RDW 15.0 % (11.5-14.0) H 08/02/20 10:45 Plt Count 391 K/mm3 (150-450) 08/02/20 10:45 MPV 9.2 fl (8-11.3) 08/02/20 10:45 Immature Gran % (Auto) 0.50 % (0.001-0.429) H 08/02/20 10:45 Immature Gran # (Auto) 0.09 K/mm3 (0.000-0.0310) H 08/02/20 10:45 Neutrophils % 74.2 % (42-75.0) 08/02/20 10:45 Lymphocytes % 16.5 % (20-51) L 08/02/20 10:45 Monocytes % 7.8 % (0.0-9) 08/02/20 10:45 Eosinophils % 0.7 % (0.0-3.0) 08/02/20 10:45 Basophils % 0.3 % (0.0-1.0) 08/02/20 10:45 Nucleated RBC % 0.0 k/mm3 (0-1) 08/02/20 10:45 Neutrophils # 13.0 K/mm3 (1.3-6.0) H 08/02/20 10:45 Lymphocytes # 2.88 k/mm3 (1.5-3.5) 08/02/20 10:45 Monocytes # 1.4 k/mm3 (0.0-1.0) H 08/02/20 10:45 Eosinophils # 0.1 k/mm3 (0.0-0.7) 08/02/20 10:45 Absolute Basophils 0.1 k/mm3 (0.0-0.1) 08/02/20 10:45 Sodium 131 mmol/L (132-142) L 08/02/20 10:45 Plasma Sodium 131 mmol/L (130-142) 08/02/20 10:45 Potassium 4.0 mmol/L (3.4-4.6) 08/02/20 10:45 Chloride 96 mmol/L (97-106) L 08/02/20 10:45 Carbon Dioxide 19.8 mmol/L (24-32.6) L 08/02/20 10:45 Anion Gap 19.2 mmol/L (6.8-13.8) H 08/02/20 10:45 BUN 39 mg/dL (6-23) H 08/02/20 10:45 Creatinine 3.03 mg/dL (0.4-1.4) H D 08/02/20 10:45 Est GFR (Non-Af Amer) 22 mL/min (60-130) L D 08/02/20 10:45 BUN/Creatinine Ratio 12.9 (9.0-21.6) 08/02/20 10:45 Random Glucose 131 mg/dL (70-110) H 08/02/20 10:45 Lactic Acid, Venous 2.2 mmol/L (0.4-2.0) H* 08/02/20 13:50 Calcium 9.6 mg/dL (7.9-10.9) 08/02/20 10:45 Calcium Adj for Albumin 9.2 mg/dL (8.4-10.2) 08/02/20 10:45 Total Bilirubin 0.8 mg/dL (0.0-1.1) 08/02/20 10:45 AST 18 U/L (0-48) 08/02/20 10:45 ALT 27 U/L (19-67) 08/02/20 10:45 Alkaline Phosphatase 110 U/L (50-170) 08/02/20 10:45 Troponin I Less than 0.017 ng/mL (0.00-0.10) 08/02/20 10:45 Total Protein 8.9 gm/dL (6.2-8.2) H 08/02/20 10:45 Albumin 4.1 gm/dl (3.4-5.0) 08/02/20 10:45 Amylase 36 U/L (25-115) 08/02/20 10:45 Lipase 53 U/L (73-393) L 08/02/20 10:45 Urine Color [place] 08/02/20 11:34 Urine Appearance Cloudy (CLEAR) 08/02/20 11:34 Urine pH 5.0 pH (5.0-7.0) 08/02/20 11:34 Ur Specific [place] >=1.030 SP.GR. (1.005-1.030) 08/02/20 11:34 Urine Protein Negative mg/dL (NEGATIVE) 08/02/20 11:34 Urine Glucose (UA) Negative mg/dL (NEGATIVE) 08/02/20 11:34 Urine Ketones Negative mg/dL (NEGATIVE) 08/02/20 11:34 Urine Blood Negative /ul (NEGATIVE) 08/02/20 11:34 Urine Nitrate Negative (NEGATIVE) 08/02/20 11:34 Urine Bilirubin 1 mg/dl (NEGATIVE) H 08/02/20 11:34 Urine Ictotest Positive (NEGATIVE) H 08/02/20 11:34 Urine Urobilinogen Normal EU/dl (NORMAL) 08/02/20 11:34 Ur Leukocyte Esterase Negative /ul (NEGATIVE) 08/02/20 11:34 Urine RBC Trace /hpf (0-5) 08/02/20 11:34 Urine WBC Trace /hpf (0-5) 08/02/20 11:34 Ur Epithelial Cells Trace /hpf (0-5) 08/02/20 11:34 Urine Bacteria None seen (NONE) 08/02/20 11:34 Hyaline Casts 5-10 /LPF (NONE) H 08/02/20 11:34 Urine Culture Comments No culture indicated 08/02/20 11:34 SARS-CoV-2 (PCR) Not detected (NotDetected) 08/02/20 13:37 Assessment/Plan - Narrative Narrative: Will admit to observation and hydrate. He has started having bowel movements upon admission. Will monitor to see if this helps his abdominal pain. I believe it was secondary to stool retention from his narcotics. Will hydrate with IV fluids and monitor renal function. His creatinine is currently about twice his baseline. If symptoms are improved and creatinine improved to baseline tomorrow, may be able to discharge to home. - Assessment/Plan (1) Acute renal failure superimposed on stage 3 chronic kidney disease Problem: Acute (2) Fecal retention Problem: Acute (3) Abdominal pain Problem: Acute
[2020-08-03] MEDS: ONDANSETRON HCL 4 MG TABLET PO SCH ×4 (03:15→22:51)
[2020-08-03] MEDS: NORMAL SALINE 1,000 ML IV PRN ×3 (03:43→19:50)
[2020-08-03] MEDS: CYANOCOBALAMIN 1,000 MCG TABLET PO SCH (08:25)
[2020-08-03] MEDS: amLODIPine BESYLATE 5 MG TABLET PO SCH (08:26)
[2020-08-03] MEDS: ASPIRIN 81 MG TAB.CHEW PO SCH (08:26)
[2020-08-03] MEDS: ENALAPRIL MALEATE 20 MG TABLET PO SCH (08:26)
[2020-08-03] MEDS ORDERED: CLONIDINE HCL 0.1 MG TABLET PO SCH (09:00)
[2020-08-03] MEDS: ACETAMINOPHEN 1,000 MG/100 ML BTL IV PRN ×2 (09:43→19:41)
[2020-08-03 10:00] LABS: Albumin * 3.2 gm/dl (3.4-5.0); Anion Gap 13.6 mmol/L (6.8-13.8); Bilirubin, Total 0.7 mg/dL (0.0-1.1); Ca. Corrected For Albumin 8.9 mg/dL (8.4-10.2); Calcium * 8.6 mg/dL (7.9-10.9); Carbon Dioxide 19.7 mmol/L (24-32.6); Potassium 4.3 mmol/L (3.4-4.6); Total Protein 7.2 gm/dL (6.2-8.2)
[2020-08-03 10:12] LABS: Hematocrit 40.7 % (42.0-52.0); Hemoglobin 13.2 gm/dL (13.5-18.0); Mean Corpuscular Hemoglobin 27.6 pg (27-31); Mean Corpuscular Hgb Conc 32.4 g/dl (32-36); Mean Platelet Volume 9.4 fl (8-11.3); Neutrophil # 8.3 K/mm3 (1.3-6.0); Neutrophil % 74.6 % (42-75.0); Platelet Count 306 K/mm3 (150-450); Red Blood Count 4.79 M/mm3 (4.7-6.0); Red Cell Distribution Width 15.2 % (11.5-14.0); White Blood Count 11.2 K/mm3 (4.0-10.5)
[2020-08-03] MEDS: CLONIDINE HCL PO SCH ×2 (20:04)
[2020-08-03] MEDS ORDERED: ROSUVASTATIN CALCIUM 5 MG TABLET PO SCH (21:00)
--- NOTE | 2020-08-03 22:54 | PN ---
Subjective - Date and Time Seen Date: 08/03/20 Time: 11:30 Subjective Narrative: Jonah reports feeling better. Had a lot of stool this AM, abdominal pain is better. He has complained about various pain locations all day. Creatinine improved from 3 to 2.5, still not at baseline. Objective - Vitals Vitals: Last Vital Signs Temp 36.8 C 08/03/20 18:09 Pulse 91 08/03/20 20:04 Resp 20 08/03/20 18:09 BP 138/81 08/03/20 20:04 Pulse Ox 100 08/03/20 18:09 - Abnormal Lab Findings Abnormal Lab Findings: Abnormal Lab Results 08/03/20 08/03/20 Range/Units 09:45 09:45 WBC 11.2 H D (4.0-10.5) K/mm3 Hgb 13.2 L (13.5-18.0) gm/dL Hct 40.7 L (42.0-52.0) % RDW 15.2 H (11.5-14.0) % Immature Gran % (Auto) 0.50 H (0.001-0.429) % Immature Gran # (Auto) 0.06 H (0.000-0.0310) K/mm3 Lymphocytes % 12.8 L (20-51) % Monocytes % 10.4 H (0.0-9) % Neutrophils # 8.3 H (1.3-6.0) K/mm3 Lymphocytes # 1.43 L (1.5-3.5) k/mm3 Monocytes # 1.2 H (0.0-1.0) k/mm3 Sodium 130 L (132-142) mmol/L Carbon Dioxide 19.7 L (24-32.6) mmol/L BUN 46 H (6-23) mg/dL Creatinine 2.56 H D (0.4-1.4) mg/dL Est GFR (Non-Af Amer) 26 L (60-130) mL/min Random Glucose 119 H (70-110) mg/dL Albumin 3.2 L (3.4-5.0) gm/dl - Exam Constitutional: Present: Alert, Oriented x3 Respiratory: Present: lungs clear, normal breath sounds Cardiovascular/Chest: Present: regular rate, rhythm, no murmur Abdomen: Present: Normal bowel sounds, soft, nontender Appearance: Present: appropriate appearance, appropriate insight Eye contact: Present: cooperative, good eye contact Assessment/Plan Plan Narrative: Creatinine improved from 3 to 2.5. Continue IV fluids as he is not at baseline, but I suspect he will be tomorrow. Plan to discharge to home tomorrow. Abdominal pain improved today. CDIFF negative, likely from stool retention. - Problems/Diagnosis (1) Acute renal failure superimposed on stage 3 chronic kidney disease Problem: Acute (2) Fecal retention Problem: Acute (3) Abdominal pain Problem: Acute
[2020-08-04] MEDS: ACETAMINOPHEN 1,000 MG/100 ML BTL IV PRN (02:19)
[2020-08-04] MEDS: NORMAL SALINE 1,000 ML IV PRN (04:02)
[2020-08-04 06:37] LABS: Hemoglobin 12.8 gm/dL (13.5-18.0); Mean Cell Volume 87.1 fl (78-100); Mean Corpuscular Hemoglobin 27.9 pg (27-31); Mean Platelet Volume 9.3 fl (8-11.3); Neutrophil # 5.2 K/mm3 (1.3-6.0); Neutrophil % 59.3 % (42-75.0); Platelet Count 259 K/mm3 (150-450); Red Blood Count 4.59 M/mm3 (4.7-6.0); Red Cell Distribution Width 15.1 % (11.5-14.0); White Blood Count 8.8 K/mm3 (4.0-10.5)
[2020-08-04 06:53] LABS: Albumin * 3.1 gm/dl (3.4-5.0); Anion Gap 14.1 mmol/L (6.8-13.8); BUN/Creatinine Ratio 18.2 (9.0-21.6); Bilirubin, Total 0.5 mg/dL (0.0-1.1); Calcium * 8.6 mg/dL (7.9-10.9); Carbon Dioxide 20.1 mmol/L (24-32.6); Potassium 4.2 mmol/L (3.4-4.6); Total Protein 7.1 gm/dL (6.2-8.2)
[2020-08-04] MEDS: CLONIDINE HCL PO SCH ×2 (08:48)
[2020-08-04] MEDS: CYANOCOBALAMIN 1,000 MCG TABLET PO SCH (08:48)
[2020-08-04] MEDS: amLODIPine BESYLATE 5 MG TABLET PO SCH (08:48)
[2020-08-04] MEDS: ASPIRIN 81 MG TAB.CHEW PO SCH (08:48)
[2020-08-04] MEDS: ONDANSETRON HCL 4 MG TABLET PO SCH (08:48)
[2020-08-04] MEDS: ENALAPRIL MALEATE 20 MG TABLET PO SCH (08:49)
--- NOTE | 2020-08-04 11:54 | DS ---
(1) Acute renal failure superimposed on stage 3 chronic kidney disease Problem: Resolved Qualifiers: Acute renal failure type: unspecified Chronic kidney disease stage 3 subtype: stage 3b (GFR 30-44) Qualified Code(s): N17.9 - Acute kidney failure, unspecified; N18.32 - Chronic kidney disease, stage 3b (2) Fecal retention Problem: Resolved (3) Abdominal pain Problem: Resolved Date of Discharge:: 08/04/20 Hospital Course: James is a 74 yo male admitted for acute on chronic kidney failure stage 3b due to poor oral intake from abdominal pain. Pain appeared to be from stool retention. He was treated with IV fluids and began having lots of bowel movements. His abdominal pain improved and his creatinine improved from 3 to 2.2 with IV fluids which is now back at his baseline. He is feeling better and will be discharged to home today with home health. He had a face to face done at discharge to set up home health. He needs help with ADLs to make sure he is getting adequate hydration and nutrition to prevent worsening renal function. He has weakness from deconditioning and needs home PT and OT. It is physically taxing for him to leave the home due to his weakness. Procedures Performed: none Results and Findings: Pending Mircobiology Results 08/02/20 10:45 Blood Blood Culture - Preliminary NO GROWTH AFTER 48 HOURS 08/03/20 13:45 Stool Stool Culture - Preliminary No Pathogens Isolated 08/02/20 13:50 Blood Blood Culture - Preliminary NO GROWTH 24 HOURS Lab Pending Results 08/02/20 10:45: WBC 17.5 H, RBC 5.45, Hgb 15.1, Hct 45.7, MCV 83.9, MCH 27.7, MCHC 33.0, RDW 15.0 H, Plt Count 391, MPV 9.2, Immature Gran % (Auto) 0.50 H, Immature Gran # (Auto) 0.09 H, Neutrophils % 74.2, Lymphocytes % 16.5 L, Monocytes % 7.8, Eosinophils % 0.7, Basophils % 0.3, Nucleated RBC % 0.0, Neutrophils # 13.0 H, Lymphocytes # 2.88, Monocytes # 1.4 H, Eosinophils # 0.1, Absolute Basophils 0.1 08/02/20 10:45: Sodium 131 L, Plasma Sodium 131, Potassium 4.0, Chloride 96 L, Carbon Dioxide 19.8 L, Anion Gap 19.2 H, BUN 39 H, Creatinine 3.03 H D, Est GFR (Non-Af Amer) 22 L D, BUN/Creatinine Ratio 12.9, Random Glucose 131 H, Calcium 9.6, Calcium Adj for Albumin 9.2, Total Bilirubin 0.8, AST 18, ALT 27, Alkaline Phosphatase 110, Troponin I Less than 0.017, Total Protein 8.9 H, Albumin 4.1 08/02/20 10:45: Lactic Acid, Venous 2.9 H* 08/02/20 10:45: Amylase 36, Lipase 53 L 08/02/20 11:34: Urine Color [place], Urine Appearance Cloudy, Urine pH 5.0, Ur Specific [place] >=1.030, Urine Protein Negative, Urine Glucose (UA) Negative, Urine Ketones Negative, Urine Blood Negative, Urine Nitrate Negative, Urine Bilirubin 1 H, Urine Ictotest Positive H, Urine Urobilinogen Normal, Ur Leukocyte Esterase Negative, Urine RBC Trace, Urine WBC Trace, Ur Epithelial Cells Trace, Urine Bacteria None seen, Hyaline Casts 5-10 H, Urine Culture Comments No culture indicated 08/02/20 13:37: SARS-CoV-2 (PCR) Not detected 08/02/20 13:50: Lactic Acid, Venous 2.2 H* 08/03/20 09:45: WBC 11.2 H D, RBC 4.79, Hgb 13.2 L, Hct 40.7 L, MCV 85.0, MCH 27.6, MCHC 32.4, RDW 15.2 H, Plt Count 306, MPV 9.4, Immature Gran % (Auto) 0.50 H, Immature Gran # (Auto) 0.06 H, Neutrophils % 74.6, Lymphocytes % 12.8 L, Monocytes % 10.4 H, Eosinophils % 1.3, Basophils % 0.4, Nucleated RBC % 0.0, Neutrophils # 8.3 H, Lymphocytes # 1.43 L, Monocytes # 1.2 H, Eosinophils # 0.2, Absolute Basophils 0.0 08/03/20 09:45: Sodium 130 L, Plasma Sodium 130, Potassium 4.3, Chloride 101, Carbon Dioxide 19.7 L, Anion Gap 13.6, BUN 46 H, Creatinine 2.56 H D, Est GFR (Non-Af Amer) 26 L, BUN/Creatinine Ratio 18.0, Random Glucose 119 H, Calcium 8.6, Calcium Adj for Albumin 8.9, Total Bilirubin 0.7, AST 9, ALT 20, Alkaline Phosphatase 88, Total Protein 7.2, Albumin 3.2 L 08/03/20 13:45: Stl C.difficile Tox A&B Negative 08/04/20 06:10: WBC 8.8 D, RBC 4.59 L, Hgb 12.8 L, Hct 40.0 L, MCV 87.1, MCH 27.9, MCHC 32.0, RDW 15.1 H, Plt Count 259, MPV 9.3, Immature Gran % (Auto) 0.60 H, Immature Gran # (Auto) 0.05 H, Neutrophils % 59.3, Lymphocytes % 27.3, Monocytes % 8.8, Eosinophils % 3.3 H, Basophils % 0.7, Nucleated RBC % 0.0, Neutrophils # 5.2, Lymphocytes # 2.40, Monocytes # 0.8, Eosinophils # 0.3, Absolute Basophils 0.1 08/04/20 06:10: Sodium 133, Plasma Sodium 133, Potassium 4.2, Chloride 103, Carbon Dioxide 20.1 L, Anion Gap 14.1 H, BUN 40 H, Creatinine 2.20 H, Est GFR (Non-Af Amer) 31 L, BUN/Creatinine Ratio 18.2, Random Glucose 104, Calcium 8.6, Calcium Adj for Albumin 9.0, Total Bilirubin 0.5, AST 14, ALT 20, Alkaline Phosphatase 81, Total Protein 7.1, Albumin 3.1 L Discharge Location: Home Disposition: Home Health Service Home Health Agency: [facility] Condition: Stable Face to Face Encounter completed per CMS Guidelines: Yes Discharge Activity: Activity as tolerated Discharge Diet: Low salt Referrals: Vito Khan MD [Primary Care Provider] - One Week Problem Oriented Discharge Instructions to Patient/Family: Acute Kidney Injury, Adult Additional Patient Instructions (free text): Limit taking oxycodone as this will cause constipation and worsen abdominal pain. Make sure to take stool softeners if taking narcotic pain medication. Prescriptions (Any new or edited meds): Sennosides/Docusate Sodium [Senna-S Tablet] 1 ea PO BID PRN #60 tab PRN Reason: constipation Transmission Status: Pending to [facility], [place], [place] Complete Home Medications List: Complete Home Medication List: Aspirin 81 mg PO DAILY 05/03/16 mometasone 0.1 % topical ointment TP 30 Days #45 03/20/18 benazepril 40 mg tablet 40 mg PO DAILY #90 tab 09/26/19 furosemide 20 mg tablet 20 mg PO DAILY #90 tab 01/14/20 amlodipine 5 mg tablet 5 mg PO DAILY #60 tab 05/05/20 atorvastatin 10 mg tablet 10 mg PO HS #90 tab 05/05/20 Clonidine HCl 0.3 tab PO BID 07/26/20 Mecobalamin [B12 Active] 1,000 mcg PO DAILY 07/26/20 gabapentin 300 mg capsule 300 mg PO TID #270 cap 07/26/20 Ondansetron HCl [Zofran] 4 mg PO Q8H #20 tab 07/27/20 oxyCODONE HCL/ACETAMINOPHEN [Percocet 5 MG/325 MG] 1 tab PO Q6H PRN #30 tab 07/27/20 Sennosides/Docusate Sodium [Senna-S Tablet] 1 ea PO BID PRN #60 tab 08/04/20 Forms: Patient Portal Registration
[2020-08-04 13:44] VITALS: BP 136/69
== END 2020-08-04 14:26 | disposition home or self-care (01) ==
LOC: ER 10:09 → MS 10:09
PROVIDERS: ADMIT Family Medicine; ATTEND Family Medicine
DX: N17.9 Acute kidney failure, unspecified; R10.9 Unspecified abdominal pain; K59.00 Constipation, unspecified; R07.9 Chest pain, unspecified; N18.32 Chronic kidney disease, stage 3b